=== PATIENT | male | born 1945 | race Caucasian/White ===

== ENCOUNTER 2019-08-21 11:06 | Emergency (ER) | payer OTHER, MEDICARE ==
--- OUTSIDE RECORDS SUMMARY | 2019-08-21 11:09 | XMS REPORT | Clinical Summary ---
:1945 Author Organization [facility] Address [address] [place] [address] Care Team Providers Name Role Phone Jamaal Rose MD Primary Care Provider Allergies Active Allergy Reactions Severity Noted Date Comments No Known Drug Allergies 06/06/2015 Medications No known medications Active Problems Problem Noted Date Chronic dermatitis 06/06/2015 Hearing loss 06/06/2015 HLD (hyperlipidemia) 06/06/2015 Hypertension 06/06/2015 Social History Tobacco Use Types Packs/Day Years Used Date Never Smoker Alcohol Use Drinks/Week oz/Week Comments No Sex Assigned at Date Recorded Not on file Job Start Date Occupation Industry Not on file Not on file Not on file Travel History Travel Start Travel End No recent travel history available. Last Filed Vital Signs Not on file Plan of Treatment Health Maintenance Due Date Last Done Comments SHINGLES VACCINES (#1) 07/11/1993 65+ PNEUMOCOCCAL VACCINE (1 of 2 - PCV13) 07/11/2008 INFLUENZA VACCINE 09/17/2019 COLONOSCOPY SCREENING 02/16/2022 02/17/2012 Results Not on fileafter 08/20/2018 Insurance Payer Benefit Plan / Subscriber ID Effective Dates Phone Addre ss Type Group AARP AARP SUPPLEMENT xxxxxxxxxxx 2014-Present Commercial MEDICARE MEDICARE PART A xxxxxxxxxx 2008-Present [employer] Medicare AND B [phone] [id number] [place] F y 6 (Home) [place] [address] Advance Directives For more information, please contact: [phone] Type Date Recorded 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
--- OUTSIDE RECORDS SUMMARY | 2019-08-21 11:14 | XMS REPORT | Continuity of Care Document ---
:1945 Author Organization [employer] Information [employer] Care Team Providers Name Role Phone [employer] Unavailable Un available Problems Problem Status Onset Classification Date Comments Sourc e Date Reported SPONDYLOSIS WITH Active Condition 06/01/2014 MYELOPATHY, LUMBAR 014 M edical REGION Group URINARY FREQUENCY Active Condition 06/01/2014 [facility] 014 Medical Group DENTAL CARIES Active Condition 06/01/2014 014 Medical Group SPASM OF MUSCLE Active Condition 06/01/2014 014 Medical Group PHYSICAL EXAM Active Condition 06/01/2014 014 Medical Group SCREENING OTHER&UNSPEC Active Condition 06/01/2014 CARDIOVASCULAR 014 Medic al CONDITIONS Group DERMATITIS Active Condition 06/01/2014 014 Medical Group TESTICULAR HYPOFUNCTION Active Condition 06/01/2014 014 Medical Group SCREENING FOR MALIGNANT Inactive Condition 06/01/2014 NEOPLASM, PROSTATE 013 M edical Group LIBIDO, DECREASED Inactive Condition 06/01/2014 H 013 Medical Group ANEMIA, UNSPC Inactive Condition 06/01/2014 013 Medical Group PRURITUS ANI Inactive Condition 06/01/2014 013 Medical Group GASTROENTERITIS Inactive Condition 06/01/2014 012 Medical Group HEADACHE Inactive Condition 06/01/2014 012 Medical Group CARPAL TUNNEL SYNDROME, Inactive Condition 06/01/2014 LEFT 012 Medical Group ABDOMINAL DISTENSION Inactive Condition 06/01/2014 012 Medical Group SPONTANEOUS ECCHYMOSES Inactive Condition 06/01/2014 012 Medical Group ALCOHOL ABUSE Inactive Condition 06/01/2014 012 Medical Group CELLULITIS, LEG, RIGHT Inactive Condition 06/01/2014 012 Medical Group ABDOMINAL PAIN, LEFT Inactive Condition 06/01/2014 LOWER QUADRANT 012 Medic al Group NEPHROLITHIASIS Inactive Condition 06/01/2014 012 Medical Group LOW BACK PAIN, ACUTE Inactive Condition 06/01/2014 012 Medical Group BILIARY COLIC Inactive Condition 06/01/2014 012 Medical Group RUQ PAIN Inactive Condition 06/01/2014 012 Medical Group PERIPHERAL EDEMA Inactive Condition 06/01/2014 012 Medical Group TINEA PEDIS Inactive Condition 06/01/2014 012 Medical Group STREPTOCOCCAL Inactive Condition 06/01/2014 PHARYNGITIS 012 Medical Group ALLERGIC RHINITIS Active Condition 06/01/2014 H 012 Medical Group HYPERKALEMIA Inactive Condition 06/01/2014 012 Medical Group EAR PAIN, LEFT Inactive Condition 06/01/2014 011 Medical Group OTITIS MEDIA Inactive Condition 06/01/2014 011 Medical Group COUGH Inactive Condition 06/01/2014 011 Medical Group DYSLIPIDEMIA Active Condition 06/01/2014 011 Medical Group HYPERTENSION Active Condition 06/01/2014 011 Medical Group IMPAIRED FASTING Active Condition 06/01/2014 GLUCOSE 011 Medical Group PHYSICAL EXAMINATION Inactive Condition 06/01/2014 011 Medical Group 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 & OTH LUTS 011 Medical Group ELEVATED BLOOD PRESSURE Inactive Condition 06/01/2014 011 Medical Group VACCINE AGAINST Inactive Condition 06/01/2014 INFLUENZA 011 Medical Group VACCINE AGAINST Inactive Condition 06/01/2014 STREPTOCOCCUS 011 Medica l PNEUMONIAE Group HYPERCHOLESTEROLEMIA Active Condition 06/01/2014 Medical Group Medications Medication Details Route Status Patient Ordering Order Source Instructions Provider Date ANDROGEL PUMP 20.25 apply two Active 11/30/ MG/ACT (1.62%) GEL pumps to 2013 Medi [facility] skin daily Group AMOXICILLIN-POT 1 tab po No 08/09/ CLAVULANATE 875-125 twice daily Longer 2013 Medical MG TABS x 10 days Active Group for infection CYCLOBENZAPRINE HCL 1/2- 1 tab No 08/09/ M H 10 MG TABS nightly as Longer 2013 Medical needed for Active Group muscle spasms CYCLOBENZAPRINE HCL 1/2- 1 tab Active 08/09/ M H 10 MG TABS nightly as 2013 Medical needed for Group muscle spasms AMOXICILLIN-POT 1 tab po Active CLAVULANATE 875-125 twice daily 2014 Medical MG TABS x 10 days Group for infection HYDROCHLOROTHIAZIDE one daily Active 25 MG TABS 2013 Medical Group ANDROGEL PUMP 20.25 Apply 2 No MG/ACT (1.62%) GEL pumps to Longer 2013 [facility] skin once Active Group daily ZOSTAVAX 31623 administer No UNT/0.65ML SOLR one dose as Longer 2013 [facility] directed Active Group PERMETHRIN 5 % CREA apply from No H head to toes Longer 2013 Medical , leave for Active Group at least 8 hrs , then wash off; repeat in 14 days HYDROXYZINE HCL 50 MG 1/2 - 1 tab No TABS every 6 hr Longer 2013 Medical prn itch Active Group ZOSTAVAX 71357 administer No UNT/0.65ML SOLR one dose as Longer 2013 [facility] directed Active Group HYDROXYZINE HCL 50 MG 1/2 - 1 tab No TABS every 6 hr Longer 2013 Medical prn itch Active Group SINGULAIR 10 MG TABS 1 po once Active H daily when 2012 Medical needed Group SINGULAIR 10 MG TABS 1 po qpm Active 2012 Medical Group ZOCOR 20 MG TABS 1 PO QHS Active (cholesterol 2012 Medical ) Group ZOCOR 20 MG TABS 1 PO QHS Active (cholesterol 2012 Medical ) Group PROCTOFOAM HC 1-1 % apply per No FOAM rectal tid Longer 2012 Medical prn Active Group itch/pain CICLOPIROX OLAMINE apply to No 0.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 Longer 2012 Medical feet bid Active Group until resolves DESOXIMETASONE 0.05 % apply to No M H OINT affected Longer 2012 Medical areas bid Active Group prn rash/ itch PROCTOFOAM HC 1-1 % apply per No FOAM rectal tid Longer 2012 Medical prn Active Group itch/pain CICLOPIROX OLAMINE apply to No 0.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 Longer 2012 Medical feet bid Active Group until resolves CIPRO 500 MG TABS 1 po BID No Longer 2011 Medical Active Group PROMETHAZINE HCL 25 1 po q6h prn No MG TABS nausea Longer 2011 Medical Active Group FIORICET 50-325-40 MG 1 po q6h prn No 12/31 TABS Headache Longer 2011 Medical Active Group CIPRO 500 MG TABS 1 po BID No Longer 2011 Medical Active Group PROMETHAZINE HCL 25 1 po q6h prn No MG TABS nausea Longer 2011 Medical Active Group FOLBIC 2.5-25-2 MG 1 tab po qd No H TABS Longer 2011 Medical Active Group FOLBIC 2.5-25-2 MG 1 tab po qd No H TABS Longer 2011 Medical Active Group KEFLEX 500 MG CAPS 1 tid for 10 No days for Longer 2011 Medical infection Active Group SPIRONOLACTONE 50 MG 1 tab po qd No TABS (swelling Longer 2011 Medical and Active Group hypertension ) SPIRONOLACTONE 50 MG 1 tab po qd No TABS (swelling Longer 2011 Medical and Active Group hypertension ) VICOPROFEN 7.5-200 MG 1 tab po q6h No 07/31 TABS prn prn Longer 2011 Medical pain ( max Active Group : 5 per day) VICOPROFEN 7.5-200 MG 1 tab po q6h No 07/31 TABS prn prn Longer 2011 Medical pain ( max Active Group : 5 per day) NORVASC 5 MG TABS 1 tab po qd No Longer 2011 Medical Active Group NORVASC 5 MG TABS 1 tab po qd No Longer 2011 Medical Active Group FUROSEMIDE 20 MG TABS 1 tab po qd No prn (leg Longer 2011 Medical swelling) Active Group HYZAAR 100-25 MG TABS 1 tab po qd No Longer 2012 Medical Active Group CICLOPIROX OLAMINE apply bid to No 0.77 % CREA feet until Longer 2012 Medical healed Active Group FUROSEMIDE 20 MG TABS 1 tab po qd No prn (leg Longer 2012 Medical swelling) Active Group HYZAAR 100-25 MG TABS 1 tab po qd No Longer 2012 Medical Active Group CICLOPIROX OLAMINE apply bid to No 0.77 % CREA feet until Longer 2012 Medical healed Active Group CEFDINIR 300 MG CAPS 2 caps po qd No for 10 days Longer 2012 Medical Active Group CEFDINIR 300 MG CAPS 2 caps po qd No for 10 days Longer 2012 Medical Active Group AMLODIPINE BESYLATE 1 tab po qd No 10 MG TABS Longer 2012 Medical Active Group SINGULAIR 10 MG TABS 1 daily at No bedtime Longer 2012 Medical Active Group AMLODIPINE BESYLATE 1 tab po qd No 10 MG TABS Longer 2012 Medical Active Group SINGULAIR 10 MG TABS 1 daily at No bedtime Longer 2012 Medical Active Group AVODART 0.5 MG CAPS 1 tab po qd No Longer 2012 Medical Active Group COZAAR 100 MG TABS 1 tab po qd No H Longer 2012 Medical Active Group COZAAR 100 MG TABS 1 tab po qd No H Longer 2012 Medical Active Group ZOCOR 20 MG TABS 1 tab po qd No Longer 2012 Medical Active Group ZOCOR 20 MG TABS 1 tab po qd No Longer 2012 Medical Active Group BACTRIM DS 800-160 MG one tab po No TABS bid Longer 2010 Medical Active Group SINGULAIR 10 MG TABS 1 daily at No bedtime Longer 2010 Medical Active Group PROAIR HFA 108 (90 2 puffs No BASE) MCG/ACT AERS inhaled Longer 2010 Medic al every 4 hrs Active Group as needed for chest tightness/SO B/cough SINGULAIR 10 MG TABS 1 daily at No bedtime Longer 2010 Medical Active Group PROAIR HFA 108 (90 2 puffs No BASE) MCG/ACT AERS inhaled Longer 2010 Medic al every 4 hrs Active Group as needed for chest tightness/SO B/cough LISINOPRIL 20 MG TABS 1 po qd No Longer 2010 Medical Active Group FLOMAX 0.4 MG CAPS 1 cap po qpm No (30 mins Longer 2010 Medical after same Active Group meal) FLOMAX 0.4 MG CAPS 1 cap po qpm No (30 mins Longer 2010 Medical after same Active Group meal) Allergies, Adverse Reactions, Alerts Substance Category Reaction Severity Reaction Status Date Comments S ource type Reported LISINOPRIL Drug LISINOPRIL allergy 1 Medical Group NORVASC Drug NORVASC allergy 2 Medical Group Immunizations Immunization Date Given Site Status Last Updated Comments [facility] pneumococcal 12/02/2010 completed Med ical immunization Group administered influenza 12/02/2010 completed Medica l immunization (Flu Gr oup Vax) has been administered Results Order Name Results Value Reference Date Interpretation Comments [facility] Range Chemistry CHOLESTEROL 201 - 199 06/01 Medical Group Chemistry TRIGLYCERIDE 63 - 149 06/01 Medical Group Chemistry HDL 68 >=61 06/01 Medical Group Chemistry LDL 120 - 99 06/01 Medical Group Chemistry PSA 2.6 0.0 - 4.0 06/01 Medical Group Chemistry SODIUM 137 MEQ/L 135 - 145 06/01 Medical Group Chemistry POTASSIUM 4.2 MEQ/L 3.5 - 5.1 06/01 Medical Group Chemistry CREATININE 1.2 0.5 - 1.4 06/01 Medical Group Chemistry BUN 12 7 - 22 06/01 Medical Group Chemistry BUN/CREAT 10 6 - 25 06/01 Medical Group Chemistry ALBUMIN 4.1 3.5 - 5.0 06/01 Medical Group Chemistry CALCIUM 9.6 8.5 - 10.5 06/01 Medical Group Chemistry SGPT (ALT) 34 0 - 65 06/01 Medical Group Chemistry SGOT (AST) 27 0 - 37 06/01 Medical Group Chemistry ALK PHOS 67 39 - 136 06/01 Medical Group Chemistry TESTO, TOTAL 404 250 - 1100 06/01 Medical Group Chemistry TESTO, FREE 86.2 30.0 - 06/01 MH 135.0 /2014 Medical Group Urinalysis UA COLOR Light 06/01 Yellow /2014 Medical Group Urinalysis UA COLOR Yellow 08/09 Medical Group Urinalysis UA COLOR Yellow 08/09 Medical Group Urinalysis UA COLOR Yellow 08/09 Medical Group Chemistry SODIUM 141 MEQ/L 135 - 145 08/09 Medical Group Chemistry SODIUM 141 MEQ/L 135 - 145 08/09 Medical Group Chemistry POTASSIUM 4.5 MEQ/L 3.5 - 5.1 08/09 Medical Group Chemistry CREATININE 1.0 0.5 - 1.4 08/09 Medical Group Chemistry BUN 10 7 - 22 08/09 Medical Group Chemistry BUN/CREAT 10 - 08/09 Medical Group Chemistry ALBUMIN 4.3 3.5 - 5.0 08/09 Medical Group Chemistry CALCIUM 9.3 8.5 - 10.5 08/09 Medical Group Chemistry SGPT (ALT) 62 0 - 65 08/09 Medical Group Chemistry SGOT (AST) 56 0 - 37 08/09 Medical Group Chemistry SODIUM 141 MEQ/L 135 - 145 08/09 Medical Group Chemistry SODIUM 141 MEQ/L 135 - 145 08/09 Medical Group Chemistry POTASSIUM 4.5 MEQ/L 3.5 - 5.1 08/09 Medical Group Chemistry CREATININE 1.0 0.5 - 1.4 08/09 Medical Group Chemistry BUN 10 7 - 08/09 Medical Group Chemistry BUN/CREAT 10 - 08/09 Medical Group Chemistry ALBUMIN 4.3 3.5 - 5.0 08/09 Medical Group Chemistry CALCIUM 9.3 8.5 - 10.5 08/09 Medical Group Chemistry SGPT (ALT) 62 0 - 65 08/09 Medical Group Chemistry SGOT (AST) 56 0 - 37 08/09 Medical Group Chemistry ALK PHOS 73 39 - 136 08/09 Medical Group Chemistry ALK PHOS 73 39 - 136 08/09 Medical Group Hematology HGB 14.3 14.0 - 08/09 18.0 Medical Group Hematology HCT 43.4 42.0 - 08/09 54.0 Medical Group Hematology PLATELETS 291 K/CMM 133 - 450 08/09 Medical Group Hematology HGB 14.3 14.0 - 08/09 MH 18.0 Medical Group Hematology HCT 43.4 42.0 - 08/09 54.0 Medical Group Hematology PLATELETS 291 K/CMM 133 - 450 08/09 Medical Group Chemistry SODIUM 138 MEQ/L 135 - 145 06/29 Medical Group Chemistry SODIUM 138 MEQ/L 135 - 145 06/29 Medical Group Chemistry POTASSIUM 5.0 MEQ/L 3.5 - 5.1 06/29 Medical Group Chemistry CREATININE 1.1 0.5 - 1.4 06/29 Medical Group Chemistry BUN 13 7 - 22 06/29 Medical Group Chemistry BUN/CREAT 12 6 - 25 06/29 Medical Group Chemistry ALBUMIN 4.4 3.5 - 5.0 06/29 Medical Group Chemistry CALCIUM 9.8 8.5 - 10.5 06/29 Medical Group Chemistry SGPT (ALT) 41 0 - 65 06/29 Medical Group Chemistry SGOT (AST) 30 0 - 37 06/29 Medical Group Chemistry ALK PHOS 74 39 - 136 06/29 Medical Group Chemistry TESTO, TOTAL 230 241 - 827 06/29 Medical Group Chemistry TESTO, TOTAL 199 241 - 827 03/17 Medical Group Chemistry TESTO, TOTAL 199 241 - 827 03/17 Medical Group Chemistry HGBA1C 5.7 - 5.6 03/17 Medical Group Chemistry HGBA1C 5.7 - 5.6 03/17 Medical Group Chemistry CHOLESTEROL 206 - 199 03/17 Medical Group Chemistry TRIGLYCERIDE 88 - 149 03/17 Medical Group Chemistry HDL 66 >=61 03/17 Medical Group Chemistry LDL 122 - 99 03/17 Medical Group Chemistry SODIUM 139 MEQ/L 135 - 145 03/17 Medical Group Chemistry POTASSIUM 5.5 MEQ/L 3.5 - 5.1 03/17 Medical Group Chemistry CREATININE 1.1 0.5 - 1.4 03/17 Medical Group Chemistry BUN 13 7 - 22 03/17 Medical Group Chemistry BUN/CREAT 12 6 - 25 03/17 Medical Group Chemistry ALBUMIN 4.2 3.5 - 5.0 03/17 Medical Group Chemistry CALCIUM 9.3 8.5 - 10.5 03/17 Medical Group Chemistry SGPT (ALT) 51 0 - 65 03/17 Medical Group Chemistry SGOT (AST) 35 0 - 37 03/17 Medical Group Chemistry ALK PHOS 71 39 - 136 03/17 Medical Group Chemistry TSH 1.260 0.360 - 03/17 Medical Group Chemistry HGBA1C 5.7 - 5.6 03/17 Medical Group Chemistry HGBA1C 5.7 - 5.6 03/17 Medical Group Chemistry CHOLESTEROL 206 - 199 03/17 Medical Group Chemistry TRIGLYCERIDE 88 - 149 03/17 Medical Group Chemistry HDL 66 >=61 03/17 Medical Group Chemistry LDL 122 - 99 03/17 Medical Group Chemistry SODIUM 139 MEQ/L 135 - 145 03/17 Medical Group Chemistry POTASSIUM 5.5 MEQ/L 3.5 - 5.1 03/17 Medical Group Chemistry CREATININE 1.1 0.5 - 1.4 03/17 Medical Group Chemistry BUN 13 7 - 22 03/17 Medical Group Chemistry BUN/CREAT 12 6 - 25 03/17 Medical Group Chemistry ALBUMIN 4.2 3.5 - 5.0 03/17 Medical Group Chemistry CALCIUM 9.3 8.5 - 10.5 03/17 Medical Group Chemistry SGPT (ALT) 51 0 - 65 03/17 Medical Group Chemistry SGOT (AST) 35 0 - 37 03/17 Medical Group Chemistry ALK PHOS 71 39 - 136 03/17 Medical Group Chemistry TSH 1.260 0.360 - 03/17 Medical Group Chemistry PSA 1.89 0.00 - 03/17 4. Medical Group Chemistry PSA 1.89 0.00 - 03/17 4. Medical Group Hematology HGB 14.3 14.0 - 03/17 18. Medical Group Hematology HCT 43.6 42.0 - 03/17 MH 54.0 /2013 Medical Group Hematology PLATELETS 259 K/CMM 133 - 450 03/17 Medical Group Hematology HGB 14.3 14.0 - 03/17 MH 18.0 /2013 Medical Group Hematology HCT 43.6 42.0 - 03/17 MH 54.0 /2013 Medical Group Hematology PLATELETS 259 K/CMM 133 - 450 03/17 Medical Group Urinalysis UA COLOR Yellow 03/17 Medical Group Urinalysis UA COLOR Yellow 03/17 Medical Group Urinalysis BACTERIA URN Occasional 03/17 Medical Group Chemistry CHOLESTEROL 174 - 199 07/19 Medical Group Chemistry CHOLESTEROL 174 - 199 07/19 Medical Group Chemistry TRIGLYCERIDE 95 - 149 07/19 Medical Group Chemistry HDL 58 >=61 07/19 Medical Group Chemistry SODIUM 140 MEQ/L 135 - 145 07/19 Medical Group Chemistry POTASSIUM 4.4 MEQ/L 3.5 - 5.1 07/19 Medical Group Chemistry CREATININE 1.1 0.5 - 1.4 07/19 Medical Group Chemistry BUN 11 7 - 22 07/19 Medical Group Chemistry BUN/CREAT 10 6 - 25 07/19 Medical Group Chemistry ALBUMIN 4.4 3.5 - 5.0 07/19 Medical Group Chemistry CALCIUM 9.3 8.5 - 10.5 07/19 Medical Group Chemistry SGPT (ALT) 53 0 - 65 07/19 Medical Group Chemistry SGOT (AST) 37 0 - 37 07/19 Medical Group Chemistry CHOLESTEROL 174 - 199 07/19 Medical Group Chemistry CHOLESTEROL 174 - 199 07/19 Medical Group Chemistry TRIGLYCERIDE 95 - 149 07/19 Medical Group Chemistry HDL 58 >=61 07/19 Medical Group Chemistry LDL 97 - 99 07/19 Medical Group Chemistry SODIUM 140 MEQ/L 135 - 145 07/19 Medical Group Chemistry POTASSIUM 4.4 MEQ/L 3.5 - 5.1 07/19 Medical Group Chemistry CREATININE 1.1 0.5 - 1.4 07/19 Medical Group Chemistry BUN 11 7 - 22 07/19 Medical Group Chemistry BUN/CREAT 10 6 - 25 07/19 Medical Group Chemistry ALBUMIN 4.4 3.5 - 5.0 07/19 Medical Group Chemistry CALCIUM 9.3 8.5 - 10.5 07/19 Medical Group Chemistry SGPT (ALT) 53 0 - 65 07/19 Medical Group Chemistry SGOT (AST) 37 0 - 37 07/19 Medical Group Chemistry ALK PHOS 72 39 - 136 07/19 Medical Group Chemistry ALK PHOS 72 39 - 136 07/19 Medical Group Chemistry PSA 1.52 0.00 - 03/16 4. Medical Group Chemistry PSA 1.52 0.00 - 03/16 4. Medical Group Chemistry HGBA1C 5.9 03/16 Medical Group Chemistry HGBA1C 5.9 03/16 Medical Group Chemistry CHOLESTEROL 271 120 - 200 03/16 Medical Group Chemistry TRIGLYCERIDE 83 0 - 200 03/16 Medical Group Chemistry HDL 58 >=35 03/16 Medical Group Chemistry LDL 196 0 - 129 03/16 Medical Group Chemistry SODIUM 139 MEQ/L 135 - 145 03/16 Medical Group Chemistry POTASSIUM 4.6 MEQ/L 3.5 - 5.1 03/16 Medical Group Chemistry CREATININE 1.0 0.5 - 1.4 03/16 Medical Group Chemistry BUN 11 7 - 22 03/16 Medical Group Chemistry BUN/CREAT 11 6 - 25 03/16 Medical Group Chemistry ALBUMIN 4.3 3.5 - 5.0 03/16 Medical Group Chemistry CALCIUM 9.4 8.5 - 10.5 03/16 Medical Group Chemistry SGPT (ALT) 51 0 - 65 03/16 Medical Group Chemistry SGOT (AST) 33 0 - 37 03/16 Medical Group Chemistry ALK PHOS 64 39 - 136 03/16 Medical Group Chemistry FERRITIN 462 22 - 275 03/16 Medical Group Chemistry IRON 115 45 - 160 03/16 Medical Group Chemistry TIBC 250 228 - 428 03/16 Medical Group Chemistry FOLATE 25.1 >=3.0 03/16 Medical Group Hematology HGB 14.6 14.0 - 03/16 18.0 Medical Group Hematology HCT 43.8 42.0 - 03/16 54.0 /2012 Medical Group Hematology PLATELETS 254 K/CMM 133 - 450 03/16 Medical Group Chemistry LDL 158 0 - 129 10/28 Medical Group Chemistry LDL 158 0 - 129 10/28 Medical Group Chemistry SODIUM 138 MEQ/L 135 - 145 10/28 Medical Group Chemistry POTASSIUM 5.1 MEQ/L 3.5 - 5.1 10/28 Medical Group Chemistry CREATININE 1.5 0.5 - 1.4 10/28 Medical Group Chemistry BUN 26 7 - 22 10/28 Medical Group Chemistry BUN/CREAT 17 6 - 25 10/28 Medical Group Chemistry ALBUMIN 4.7 3.5 - 5.0 10/28 Medical Group Chemistry CALCIUM 10.1 8.5 - 10.5 10/28 Medical Group Chemistry SGPT (ALT) 45 0 - 65 10/28 Medical Group Chemistry SGOT (AST) 17 0 - 37 10/28 Medical Group Chemistry ALK PHOS 55 39 - 136 10/28 Medical Group Chemistry FERRITIN 516 22 - 275 10/28 Medical Group Chemistry IRON 156 45 - 160 10/28 Medical Group Chemistry TIBC 283 228 - 428 10/28 Medical Group Chemistry CHOLESTEROL 227 120 - 200 10/28 Medical Group Chemistry CHOLESTEROL 227 120 - 200 10/28 Medical Group Chemistry TRIGLYCERIDE 97 0 - 200 10/28 Medical Group Chemistry HDL 50 >=35 10/28 Medical Group Chemistry LDL 158 0 - 129 10/28 Medical Group Chemistry SODIUM 138 MEQ/L 135 - 145 10/28 Medical Group Chemistry POTASSIUM 5.1 MEQ/L 3.5 - 5.1 10/28 Medical Group Chemistry CREATININE 1.5 0.5 - 1.4 10/28 Medical Group Chemistry BUN 26 7 - 22 10/28 Medical Group Chemistry BUN/CREAT 17 6 - 25 10/28 Medical Group Chemistry ALBUMIN 4.7 3.5 - 5.0 10/28 Medical Group Chemistry CALCIUM 10.1 8.5 - 10.5 10/28 Medical Group Chemistry SGPT (ALT) 45 0 - 65 10/28 Medical Group Chemistry SGOT (AST) 17 0 - 37 10/28 Medical Group Chemistry ALK PHOS 55 39 - 136 10/28 Medical Group Chemistry FERRITIN 516 22 - 275 10/28 Medical Group Chemistry IRON 156 45 - 160 10/28 Medical Group Chemistry TIBC 283 228 - 428 10/28 Medical Group Chemistry FOLATE 6.9 >=3.0 10/28 Medical Group Chemistry FOLATE 6.9 >=3.0 10/28 Medical Group Hematology HGB 12.3 14.0 - 10/28 MH 18.0 Medical Group Hematology HCT 36.9 42.0 - 10/28 MH 54.0 Medical Group Hematology PLATELETS 339 K/CMM 133 - 450 10/28 Medical Group Hematology HGB 12.3 14.0 - 10/28 MH 18.0 Medical Group Hematology HCT 36.9 42.0 - 10/28 MH 54.0 Medical Group Hematology PLATELETS 339 K/CMM 133 - 450 10/28 Medical Group Chemistry GGT 80 5 - 85 09/17 Medical Group Chemistry GGT 80 5 - 85 09/17 Medical Group Chemistry IRON 108 45 - 160 09/17 Medical Group Chemistry TIBC 295 228 - 428 09/17 Medical Group Chemistry FOLATE 13.3 >=3.0 09/17 Medical Group Chemistry SODIUM 143 MEQ/L 135 - 145 09/17 Medical Group Chemistry POTASSIUM 3.9 MEQ/L 3.5 - 5.1 09/17 Medical Group Chemistry BUN 23 7 - 22 09/17 Medical Group Chemistry CREATININE 1.5 0.5 - 1.4 09/17 Medical Group Chemistry BUN/CREAT 15 6 - 25 09/17 Medical Group Chemistry ALBUMIN 4.5 3.5 - 5.0 09/17 Medical Group Chemistry CALCIUM 9.8 8.5 - 10.5 09/17 Medical Group Chemistry SGOT (AST) 25 0 - 37 09/17 Medical Group Chemistry SGPT (ALT) 37 0 - 65 09/17 Medical Group Chemistry ALK PHOS 54 39 - 136 08 /2011 Medical Group Coagulation PT PATIENT 12.9 12.0 - 09/17 MH 14.7 /2011 Medical Group Coagulation INR 0.95 0.85 - 09/17 1.17 /2011 Medical Group Coagulation PTT PATIENT 32.2 22.9 - / MH 35.8 /2011 Medical Group Coagulation PT PATIENT 12.9 12.0 - 09/17 MH 14.7 /2011 Medical Group Coagulation INR 0.95 0.85 - 09/17 1.17 /2011 Medical Group Coagulation PTT PATIENT 32.2 22.9 - 09/17 MH 35.8 /2011 Medical Group Hematology HGB 13.2 14.0 - 09/17 MH 18.0 /2011 Medical Group Hematology HCT 38.7 42.0 - 09/17 54.0 /2011 Medical Group Hematology PLATELETS 310 K/CMM 133 - 450 08 Medical Group Chemistry URIC ACID 6.4 3.8 - 8.0 08/03 Medical Group Chemistry URIC ACID 6.4 3.8 - 8.0 08/03 Medical Group Chemistry AMYLASE 34 25 - 115 07/24 Medical Group Chemistry AMYLASE 34 25 - 115 07/24 Medical Group Chemistry AMYLASE 34 25 - 115 07/24 Medical Group Chemistry SODIUM 137 MEQ/L 135 - 145 07/24 Medical Group Chemistry POTASSIUM 4.0 MEQ/L 3.5 - 5.1 07/24 Medical Group Chemistry BUN 14 7 - 22 07/24 Medical Group Chemistry CREATININE 1.2 0.5 - 1.4 07/24 Medical Group Chemistry BUN/CREAT 12 6 - 25 07/24 Medical Group Chemistry ALBUMIN 4.7 3.5 - 5.0 07/24 Medical Group Chemistry CALCIUM 9.5 8.5 - 10.5 07/24 Medical Group Chemistry SGOT (AST) 37 0 - 37 07/24 Medical Group Chemistry SGPT (ALT) 49 0 - 65 07/24 Medical Group Chemistry AMYLASE 34 25 - 115 07/24 Medical Group Chemistry ALK PHOS 66 39 - 136 07/24 Medical Group Chemistry PO4 3.4 2.5 - 4.5 02/26 Medical Group Chemistry PO4 3.4 2.5 - 4.5 02/26 Medical Group Chemistry PO4 3.4 2.5 - 4.5 02/26 Medical Group Chemistry PO4 3.4 2.5 - 4.5 02/26 Medical Group Chemistry MAGNESIUM 1.9 1.8 - 2.4 02/26 Medical Group Chemistry BUN 12 7 - 22 02/26 Medical Group Chemistry CREATININE 1.1 0.5 - 1.4 02/26 Medical Group Chemistry SODIUM 141 MEQ/L 135 - 145 02/26 Medical Group Chemistry POTASSIUM 4.6 MEQ/L 3.5 - 5.1 02/26 Medical Group Chemistry MAGNESIUM 1.9 1.8 - 2.4 02/26 Medical Group Chemistry CALCIUM 9.0 8.5 - 10.5 02/26 Medical Group Chemistry HGBA1C 6.5 02/14 Medical Group Chemistry HGBA1C 6.5 02/14 Medical Group Chemistry CHOLESTEROL 214 120 - 200 02/14 Medical Group Chemistry TRIGLYCERIDE 90 0 - 200 02/14 Medical Group Chemistry HDL 88 >=35 02/14 Medical Group Chemistry LDL 108 0 - 129 02/14 Medical Group Chemistry SODIUM 140 MEQ/L 135 - 145 02/14 Medical Group Chemistry POTASSIUM 5.5 MEQ/L 3.5 - 5.1 02/14 Medical Group Chemistry CREATININE 1.2 0.5 - 1.4 02/14 Medical Group Chemistry BUN 14 7 - 22 02/14 Medical Group Chemistry BUN/CREAT 12 6 - 25 02/14 Medical Group Chemistry ALBUMIN 4.5 3.5 - 5.0 02/14 Medical Group Chemistry CALCIUM 9.9 8.5 - 10.5 02/14 Medical Group Chemistry SGPT (ALT) 37 0 - 65 02/14 Medical Group Chemistry SGOT (AST) 18 0 - 37 02/14 Medical Group Chemistry ALK PHOS 61 39 - 136 02/14 Medical Group Chemistry CHOLESTEROL 228 120 - 200 12/03 Medical Group Chemistry CHOLESTEROL 228 120 - 200 12/03 Medical Group Chemistry TRIGLYCERIDE 115 0 - 200 12/03 Medical Group Chemistry HDL 50 >=35 12/03 Medical Group Chemistry LDL 155 0 - 129 12/03 Medical Group Chemistry TSH 1.360 0.360 - 12/03 3. Medical Group Chemistry SODIUM 138 MEQ/L 135 - 145 12/03 Medical Group Chemistry POTASSIUM 4.6 MEQ/L 3.5 - 5.1 12/03 Medical Group Chemistry BUN 13 7 - 22 12/03 Medical Group Chemistry CREATININE 1.2 0.5 - 1.4 12/03 Medical Group Chemistry BUN/CREAT 11 6 - 25 12/03 Medical Group Chemistry ALBUMIN 4.1 3.5 - 5.0 12/03 Medical Group Chemistry CALCIUM 9.0 8.5 - 10.5 12/03 [facility] SGOT (AST) 25 0 - 37 12/03 [facility] SGPT (ALT) 51 0 - 65 12/03 [facility] ALK PHOS 59 39 - 136 12/03 [facility] CHOLESTEROL 228 120 - 200 12/03 [facility] CHOLESTEROL 228 120 - 200 12/03 [facility] TRIGLYCERIDE 115 0 - 200 12/03 [facility] HDL 50 >=35 12/03 [facility] LDL 155 0 - 129 12/03 [facility] TSH 1.360 0.360 - 12/03 3. [facility] SODIUM 138 MEQ/L 135 - 145 12/03 [facility] POTASSIUM 4.6 MEQ/L 3.5 - 5.1 12/03 [facility] BUN 13 7 - 22 12/03 [facility] CREATININE 1.2 0.5 - 1.4 12/03 [facility] BUN/CREAT 11 6 - 25 12/03 [facility] ALBUMIN 4.1 3.5 - 5.0 12/03 [facility] CALCIUM 9.0 8.5 - 10.5 12/03 [facility] SGOT (AST) 25 0 - 37 12/03 [facility] SGPT (ALT) 51 0 - 65 12/03 [facility] ALK PHOS 59 39 - 136 12/03 [facility] PSA 1.44 0.00 - 12/03 . [facility] PSA 1.44 0.00 - 12/03 4. [facility] Hematology HGB 14.7 14.0 - 12/03 [facility] 18.0 [facility] Hematology HCT 42.9 42.0 - 12/03 54.0 [facility] Hematology PLATELETS 296 K/CMM 133 - 450 12/03 [facility] Hematology HGB 14.7 14.0 - 12/03 18.0 [facility] Hematology HCT 42.9 42.0 - 12/03 MH 54.0 [facility] Hematology PLATELETS 296 K/CMM 133 - 450 12/03 [facility] Urinalysis UA COLOR Yellow Yellow 12/03 [facility] Urinalysis BACTERIA URN Occasional None Seen 12/03 [facility] Urinalysis UA COLOR Yellow Yellow 12/03 Medical [facility] Urinalysis BACTERIA URN Occasional None Seen 12/03 [facility] Pathology Reports No Data Provided for This Section Diagnostic Reports No Data Provided for This Section Consultation Notes No Data Provided for This Section Discharge Summaries No Data Provided for This Section History and Physicals No Data Provided for This Section Vital Signs Vital Sign Value Date Comments Source Height 70.5 05/30/2014 [facility] Weight 213 05/30/2014 [facility] Temperature Oral (F) 96.4 F 05/30/2014 [facility] Systolic (mm Hg) 211 05/30/2014 [facility] Diastolic (mm Hg) 88 05/30/2014 [facility] Heart Rate 64 05/30/2014 [facility] Weight 213 08/09/2013 [facility] Temperature Oral (F) 96.7 F 08/09/2013 [facility] Systolic (mm Hg) 175 08/09/2013 [facility] Diastolic (mm Hg) 79 08/09/2013 [facility] Heart Rate 59 08/09/2013 [facility] Weight 213 06/29/2013 [facility] Temperature Oral (F) 96.8 F 06/29/2013 [facility] Systolic (mm Hg) 166 06/29/2013 [facility] Diastolic (mm Hg) 82 06/29/2013 [facility] Heart Rate 67 06/29/2013 [facility] Weight 213 05/19/2013 [facility] Temperature Oral (F) 96.8 F 05/19/2013 [facility] Respitory Rate 19 05/19/2013 [facility] Heart Rate 68 05/19/2013 [facility] Systolic (mm Hg) 213 05/19/2013 [facility] Diastolic (mm Hg) 109 05/19/2013 [facility] Weight 206 03/14/2013 [facility] Respitory Rate 18 03/14/2013 [facility] Temperature Oral (F) 98.3 F 03/14/2013 [facility] Heart Rate 84 03/14/2013 [facility] Systolic (mm Hg) 197 03/14/2013 [facility] Diastolic (mm Hg) 96 03/14/2013 [facility] Weight 214 03/12/2012 [facility] Temperature Oral (F) 98.5 F 03/12/2012 [facility] Respitory Rate 18 03/12/2012 [facility] Heart Rate 74 03/12/2012 [facility] Systolic (mm Hg) 200 03/12/2012 [facility] Diastolic (mm Hg) 84 03/12/2012 [facility] Weight 213 01/01/2012 [facility] Temperature Oral (F) 98.1 F 01/01/2012 [facility] Systolic (mm Hg) 165 01/01/2012 [facility] Diastolic (mm Hg) 82 01/01/2012 [facility] Heart Rate 91 01/01/2012 [facility] Weight 215 10/29/2011 [facility] Respitory Rate 19 10/29/2011 [facility] Heart Rate 76 10/29/2011 [facility] Systolic (mm Hg) 163 10/29/2011 [facility] Diastolic (mm Hg) 82 10/29/2011 [facility] Temperature Oral (F) 98.1 F 10/29/2011 [facility] Weight 223 09/17/2011 [facility] Temperature Oral (F) 97.1 F 09/17/2011 [facility] Respitory Rate 20 09/17/2011 [facility] Heart Rate 71 09/17/2011 [facility] Systolic (mm Hg) 140 09/17/2011 [facility] Diastolic (mm Hg) 77 09/17/2011 [facility] Weight 222 08/04/2011 [facility] Temperature Oral (F) 97.5 F 08/04/2011 [facility] Respitory Rate 18 08/04/2011 [facility] Systolic (mm Hg) 197 08/04/2011 [facility] Diastolic (mm Hg) 93 08/04/2011 [facility] Heart Rate 61 08/04/2011 [facility] Weight 215 07/25/2011 [facility] Temperature Oral (F) 96.1 F 07/25/2011 [facility] Respitory Rate 18 07/25/2011 [facility] Heart Rate 75 07/25/2011 [facility] Systolic (mm Hg) 164 07/25/2011 [facility] Diastolic (mm Hg) 83 07/25/2011 [facility] Weight 217 07/16/2011 [facility] Temperature Oral (F) 96.6 F 07/16/2011 [facility] Heart Rate 67 07/16/2011 [facility] Systolic (mm Hg) 167 07/16/2011 [facility] Diastolic (mm Hg) 85 07/16/2011 [facility] Weight 216 06/25/2011 [facility] Temperature Oral (F) 96.6 F 06/25/2011 [facility] Systolic (mm Hg) 157 06/25/2011 [facility] Diastolic (mm Hg) 85 06/25/2011 [facility] Heart Rate 72 06/25/2011 [facility] Respitory Rate 18 06/25/2011 [facility] Weight 213 05/28/2011 [facility] Temperature Oral (F) 96.7 F 05/28/2011 [facility] Systolic (mm Hg) 169 05/28/2011 [facility] Diastolic (mm Hg) 76 05/28/2011 [facility] Heart Rate 61 05/28/2011 [facility] Systolic (mm Hg) 180 02/26/2011 [facility] Diastolic (mm Hg) 76 02/26/2011 [facility] Weight 215 02/26/2011 [facility] Temperature Oral (F) 96.6 F 02/26/2011 [facility] Respitory Rate 18 02/26/2011 [facility] Heart Rate 76 02/26/2011 [facility] Weight 213 01/31/2011 [facility] Respitory Rate 18 01/31/2011 [facility] Heart Rate 74 01/31/2011 [facility] Systolic (mm Hg) 197 01/31/2011 [facility] Diastolic (mm Hg) 88 01/31/2011 [facility] Temperature Oral (F) 96.8 F 01/31/2011 [facility] Weight 215 01/07/2011 [facility] Respitory Rate 18 01/07/2011 [facility] Temperature Oral (F) 97.5 F 01/07/2011 [facility] Heart Rate 65 01/07/2011 [facility] Systolic (mm Hg) 144 01/07/2011 [facility] Diastolic (mm Hg) 76 01/07/2011 [facility] Height 70.5 12/02/2010 [facility] Weight 213 12/02/2010 [facility] Respitory Rate 18 12/02/2010 [facility] Heart Rate 67 12/02/2010 [facility] Systolic (mm Hg) 202 12/02/2010 [facility] Diastolic (mm Hg) 90 12/02/2010 [facility] Temperature Oral (F) 97.9 F 12/02/2010 [facility] Encounters Location Location Encounter Encounter Reason Attending ADM DC Stat us Source Details Type Number For Provider Date Date Visit [facility] Lab Report [id number] Alfredo Coffman, 08/15 08/15 Josue 340 MD /2013 [facility] [id number] Alfredo Coffman, 05/30 05/30 Josue Visit 110 MD /2014 [facility] Lab Report [id number] Alfredo Coffman, 06/01 06/01 CHERYL Salas 660 MD /2014 [facility] [place] [facility] Procedures Procedure Code Date Perfomer Comments Source colonoscopy 66831 02/16/2009 polyps - due in [facility] 2013 Group Assessment and Plan No Data Provided for This Section Plan of Care No Data Provided for This Section Social History No Data Provided for This Section Family History No Data Provided for This Section Advance Directives No Data Provided for This Section Functional Status No Data Provided for This Section
--- OUTSIDE RECORDS SUMMARY | 2019-08-21 11:20 | XMS REPORT | Continuity of Care Document ---
:1945 Author Organization [facility] t Address [address] [place] [address] Care Team Providers Name Role Phone Milton WYMAN, F. Primary Care Physician Problems Condition Condition Condition Status Onset Resolution Last Treating Co mments Source Name Details Category Date Date Treatment Clinician Date Chronic Chronic Disease Active [place] dermatitis dermatitis 4-20 Me thodi 00:00: st 00 Hearing Hearing Disease Active [place] loss loss 4-20 Methodi 00:00: st 00 HLD HLD Disease Active [place] (hyperlipi (hyperlipi 4-20 Me thodi demia) demia) 00:00: st 00 Hypertensi Hypertensi Disease Active [place] on on 4-20 Methodi 00:00: st 00 SPONDYLOSI Condition Active 2014-06-01 Memoria S WITH 6-24 10:25:00 l MYELOPATHY 00:00: Chip n , LUMBAR SPONDYLOSI 00 REGION S WITH MYELOPATHY , LUMBAR REGION Active 08/09/2013 [facility] URINARY Condition Active 2014-06-01 Me moria FREQUENCY 6-24 10:25:00 l URINARY 00:00: [place] FREQUENCY 00 Active 08/09/2013 [facility] DENTAL Condition Active 2014-06-01 Mem oria CARIES 6-24 10:25:00 l DENTAL 00:00: [place] CARIES 00 Active 08/09/2013 [facility] SPASM OF Condition Active 2014-06-01 M emoria MUSCLE 6-24 10:25:00 l SPASM OF 00:00: Chip n MUSCLE 00 Active 08/09/2013 [facility] PHYSICAL Condition Active 2014-06-01 M emoria EXAM 03-14 10:25:00 l PHYSICAL 00:00: Chip n EXAM 00 Active 03/14/2013 [facility] SCREENING Condition Active 2014-06-01 Memoria OTHER&UNSP 03-14 10:25:00 l EC 00:00: Jos[place] CARDIOVASC SCREENING 00 ULAR OTHER&UNSP CONDITIONS EC CARDIOVASC ULAR CONDITIONS Active 03/14/2013 [facility] DERMATITIS Condition Active 2014-06-01 Memoria 03-14 10:25:00 l 00:00: [place] DERMATITIS 00 Active 03/14/2013 [facility] TESTICULAR Condition Active 2014-06-01 Mem[facility] HYPOFUNCTI 03-14 10:25:00 l ON 00:00: [place] TESTICULAR 00 HYPOFUNCTI ON Active 4 Condition 06/01/2014 [facility] ALLERGIC Condition Active 2014-06-01 M emoria RHINITIS 4- 10:25:00 l ALLERGIC 00:00: Chip n RHINITIS 00 Active 05/28/2011 [facility] DYSLIPIDEM Condition Active 2010-022014-06-01 Memoria IA 03-09 10:25:00 l 00:00: [place] DYSLIPIDEM 00 IA Active 1 Condition 06/01/2014 [facility] HYPERTENSI Condition Active 2010-022014-06-01 Memoria ON 03-09 10:25:00 l 00:00: [place] HYPERTENSI 00 ON Active 1 Condition 06/01/2014 [facility] IMPAIRED Condition Active 2010-022014-06-01 M emoria FASTING 03-09 10:25:00 l GLUCOSE IMPAIRED 00:00: Miriam nn FASTING 00 GLUCOSE Active 01/07/2011 [facility] HYPERTROPH Condition Active 2010-022014-06-01 Memoria Y PROSTATE 0-17 10:25:00 l W/UR OBST 00:00: Josue & OTH LUTS HYPERTROPH 00 Y PROSTATE W/UR OBST & OTH LUTS Active 12/02/2010 [facility] HYPERCHOLE Condition Active 2014-06-01 Memoria STEROLEMIA 10:25:00 l [place] HYPERCHOLE STEROLEMIA Active Condition 06/01/2014 [facility] History of Past Illness Condition Condition Condition Status Onset Resolution Last Treating Co mments Source Name Details Category Date Date Treatment Clinician Date SCREENING Condition Inactiv 2014-06-01 2014-06-01 Memoria FOR e 03-16 10:25:00 10:25:00 l MALIGNANT 00:00: [place] NEOPLASM, SCREENING 00 PROSTATE FOR MALIGNANT NEOPLASM, PROSTATE Inactive 03/16/2012 [facility] LIBIDO, Condition Inactiv 2014-06-01 2014-06-01 Memoria DECREASED e 03-16 10:25:00 10:25:00 l LIBIDO, 00:00: [place] DECREASED 00 Inactive 03/16/2012 [facility] ANEMIA, Condition Inactiv 2014-06-01 2014-06-01 Memoria UNSPC e 03-12 10:25:00 10:25:00 l ANEMIA, 00:00: Jos[place] UNSPC 00 Inactive 03/12/2012 [facility] PRURITUS Condition Inactiv 2014-06-01 2014-06-01 Memoria ANI e 03-12 10:25:00 10:25:00 l PRURITUS 00:00: Chip n ANI 00 Inactive 03/12/2012 [facility] GASTROENTE Condition Inactiv 2011-022014-06-01 2014-06-01 Memoria RITIS e -15 10:25:00 10:25:00 l 00:00: [place] GASTROENTE 00 RITIS Inactive 01/01/2012 [facility] HEADACHE Condition Inactiv 2011-022014-06-01 2014-06-01 Memoria e -15 10:25:00 10:25:00 l HEADACHE 00:00: Chip n 00 Inactive 01/01/2012 [facility] CARPAL Condition Inactiv 2014-06-01 2014-06-01 Memoria TUNNEL e 9-11 10:25:00 10:25:00 l SYNDROME, CARPAL 00:00: Miriam nn LEFT TUNNEL 00 SYNDROME, LEFT Inactive 10/28/2011 [facility] ABDOMINAL Condition Inactiv 2014-06-01 2014-06-01 Memoria DISTENSION e 8-01 10:25:00 10:25:00 l 00:00: [place] ABDOMINAL 00 DISTENSION Inactive 09/17/2011 [facility] SPONTANEOU Condition Inactiv 2014-06-01 2014-06-01 Memoria S e 8- 10:25:00 10:25:00 l ECCHYMOSES 00:00: Chip n SPONTANEOU 00 S ECCHYMOSES Inactive 09/17/2011 [facility] ALCOHOL Condition Inactiv 2014-06-01 2014-06-01 Memoria ABUSE e 8- 10:25:00 10:25:00 l ALCOHOL 00:00: [place] ABUSE 00 Inactive 09/17/2011 [facility] CELLULITIS Condition Inactiv 2014-06-01 2014-06-01 Memoria , LEG, e 8- 10:25:00 10:25:00 l RIGHT 00:00: [place] CELLULITIS 00 , LEG, RIGHT Inactive 09/17/2011 [facility] ABDOMINAL Condition Inactiv 2014-06-01 2014-06-01 Memoria PAIN, LEFT e 6-18 10:25:00 10:25:00 l LOWER 00:00: [place] QUADRANT ABDOMINAL 00 PAIN, LEFT LOWER QUADRANT Inactive 08/04/2011 [facility] NEPHROLITH Condition Inactiv 2014-06-01 2014-06-01 Memoria IASIS e 6-18 10:25:00 10:25:00 l 00:00: [place] NEPHROLITH 00 IASIS Inactive 08/04/2011 [facility] LOW BACK Condition Inactiv 2014-06-01 2014-06-01 Memoria PAIN, e 6-18 10:25:00 10:25:00 l ACUTE LOW BACK 00:00: Chip n PAIN, 00 ACUTE Inactive 08/04/2011 [facility] BILIARY Condition Inactiv 2014-06-01 2014-06-01 Memoria COLIC e 6-15 10:25:00 10:25:00 l BILIARY 00:00: [place] COLIC 00 Inactive 08/01/2011 [facility] RUQ PAIN Condition Inactiv 2014-06-01 2014-06-01 Memoria e 6-08 10:25:00 10:25:00 l RUQ PAIN 00:00: Chip n 00 Inactive 07/25/2011 [facility] PERIPHERAL Condition Inactiv 2014-06-01 2014-06-01 Memoria EDEMA e 07-15 10:25:00 10:25:00 l 00:00: [place] PERIPHERAL 00 EDEMA Inactive 07/16/2011 [facility] TINEA Condition Inactiv 2014-06-01 2014-06-01 Memoria PEDIS e 07-15 10:25:00 10:25:00 l TINEA 00:00: [place] PEDIS 00 Inactive 07/16/2011 [facility] STREPTOCOC Condition Inactiv 2014-06-01 2014-06-01 Memoria BEBA e 06-24 10:25:00 10:25:00 l PHARYNGITI 00:00: Chip n S STREPTOCOC 00 BEBA PHARYNGITI S Inactive 06/25/2011 [facility] HYPERKALEM Condition Inactiv 2014-06-01 2014-06-01 Memoria IA e 1-11 10:25:00 10:25:00 l 00:00: [place] HYPERKALEM 00 IA Inactive 02/26/2011 [facility] EAR PAIN, Condition Inactiv 2010-022014-06-01 2014-06-01 Memoria LEFT e -16 10:25:00 10:25:00 l EAR 00:00: [place] PAIN, LEFT 00 Inactive 01/31/2011 [facility] OTITIS Condition Inactiv 2010-022014-06-01 2014-06-01 Memoria MEDIA e -16 10:25:00 10:25:00 l OTITIS 00:00: [place] MEDIA 00 Inactive 01/31/2011 [facility] COUGH Condition Inactiv 2010-022014-06-01 2014-06-01 Memoria e 1-22 10:25:00 10:25:00 l COUGH 00:00: [place] 00 Inactive 01/07/2011 [facility] PHYSICAL Condition Inactiv 2010-022014-06-01 2014-06-01 Memoria EXAMINATIO e 0-17 10:25:00 10:25:00 l N PHYSICAL 00:00: Chip n EXAMINATIO 00 N Inactive 12/02/2010 [facility] ELEVATED Condition Inactiv 2010-022014-06-01 2014-06-01 Memoria BLOOD e 0-17 10:25:00 10:25:00 l PRESSURE ELEVATED 00:00: Herm hang BLOOD 00 PRESSURE Inactive 12/02/2010 [facility] VACCINE Condition Inactiv 2010-022014-06-01 2014-06-01 Memoria AGAINST e 0-17 10:25:00 10:25:00 l INFLUENZA VACCINE 00:00: [place] hang AGAINST 00 INFLUENZA Inactive 12/02/2010 [facility] VACCINE Condition Inactiv 2010-022014-06-01 2014-06-01 Memoria AGAINST e 0-17 10:25:00 10:25:00 l STREPTOCOC VACCINE 00:00: Her pfeiffer CUS AGAINST 00 PNEUMONIAE STREPTOCOC CUS PNEUMONIAE Inactive 12/02/2010 [facility] Allergies, Adverse Reactions, Alerts Allergy Allergy Status Severity Reaction(s) Onset Inactive Treating Comm ents Source Name Type Date Date Clinician NORMICHELL NORVASC Active Memoria 5-30 l 00:00: [place] 00 LISINOPR LISINOPR Active 2010-02 Memori a [place] 1-22 l 00:00: [place] 00 Social History Social Habit Start Date Stop Date Quantity Comments Source Sex Assigned At [facility] ethodist Alcohol intake 2016-04-01 2016-04-01 Current [facility] thodist 00:00:00 00:00:00 non-drinker of alcohol (finding) Smoking Status Start Date Stop Date Source Never smoker [place] [facility] Medications Ordered Filled Start Stop Current Ordering Indication Dosage Frequency Signature Comments Components Source Medication Medication Date Date Medication? Clinician (SIG) Name Name ANDROGEL 2014-1 Yes apply two Walter kami PUMP 20.25 0-15 pumps to l MG/ACT 00:00: skin daily Miriam nn (1.62%) GEL 00 AMOXICILLIN No 1 tab po Me moria -POT 6-24 twice l CLAVULANATE 00:00: daily x 10 Josue 875-125 MG 00 days for TABS infection CYCLOBENZAP No 1/2- 1 tab Memoria RINE HCL 10 6-24 nightly as l MG TABS 00:00: needed for Herm hang 00 muscle spasms CYCLOBENZAP Yes 1/2- 1 tab Memoria RINE HCL 10 6-24 nightly as l MG TABS 00:00: needed for Herm hang 00 muscle spasms AMOXICILLIN Yes 1 tab po Me moria -POT 6-24 twice l CLAVULANATE 00:00: daily x 10 [place] 875-125 MG 00 days for TABS infection HYDROCHLORO Yes one daily M emoria THIAZIDE 25 4-03 l MG TABS 00:00: [place] 00 ANDROGEL No Apply 2 Memori a PUMP 20.25 2-05 pumps to l MG/ACT 00:00: skin once Chip n (1.62%) GEL 00 daily ZOSTAVAX No administer Mem oria 60961 1-27 one dose l UNT/0.65ML 00:00: as [place] SOLR 00 directed PERMETHRIN No apply from M emoria 5 % CREA 1-27 head to l 00:00: toes , Josue 00 leave for at least 8 hrs , then wash off; repeat in 14 days HYDROXYZINE No 1/2 - 1 Mem oria HCL 50 MG 1-27 tab every l TABS 00:00: 6 hr prn Josue itch ZOSTAVAX No administer Mem oria [id number] 1-27 one dose l UNT/0.65ML 00:00: as [place] SOLR 00 directed HYDROXYZINE No 1/2 - 1 Mem oria HCL 50 MG 1-27 tab every l TABS 00:00: 6 hr prn [place] itch SINGULAIR Yes 1 po once Mem oria 10 MG TABS 2-21 daily when l 00:00: needed Josue 00 SINGULAIR Yes 1 po qpm Walter kami 10 MG TABS 2-21 l 00:00: ZOCOR 20 MG Yes 1 PO QHS Me moria TABS 2-01 (cholester l 00:00: ol) ZOCOR 20 MG Yes 1 PO QHS Me moria TABS 2-01 (cholester l 00:00: ol) PROCTOFOAM No apply per Me moria HC 1-1 % 1-25 rectal l FOAM 00:00: tid prn itch/pain CICLOPIROX No apply to Mem oria OLAMINE 1-25 infected l 0.77 % CREA 00:00: feet bid He until resolves DESOXIMETAS No apply to Me moria ONE 0.05 % 1-25 affected l OINT 00:00: areas bid prn rash/ itch PROCTOFOAM No apply per Me moria HC 1-1 % 1-25 rectal l FOAM 00:00: tid prn itch/pain CICLOPIROX No apply to Mem oria OLAMINE 1-25 infected l 0.77 % CREA 00:00: feet bid He rm until resolves CIPRO 500 2011-02 No 1 po BID Awlter kami MG TABS 1-15 l 00:00: PROMETHAZIN 2011-02 No 1 po q6h Me moria E HCL 25 MG 1-15 prn nausea l TABS 00:00: FIORICET 2011-02 No 1 po q6h Memor ia 50-325-40 1-15 prn l MG TABS 00:00: Headache Chip n 00 CIPRO 500 2011-02 No 1 po BID Walter kami MG TABS 1-15 l 00:00: PROMETHAZIN 2011-02 No 1 po q6h Me moria E HCL 25 MG 1-15 prn nausea l TABS 00:00: FOLBIC No 1 tab po Memoria 2.5-25-2 MG 9-20 qd l TABS 00:00: FOLBIC No 1 tab po Memoria 2.5-25-2 MG 9-20 qd l TABS 00:00: [place] 00 KEFLEX 500 No 1 tid for Me moria MG CAPS 8-01 10 days l 00:00: for [place] 00 infection SPIRONOLACT No 1 tab po Me moria ONE 50 MG 8-01 qd l TABS 00:00: (swelling [place] 00 and hypertensi on) SPIRONOLACT No 1 tab po Me moria ONE 50 MG 8-01 qd l TABS 00:00: (swelling Josue and hypertensi on) VICOPROFEN No 1 tab po Mem oria 7.5-200 MG 6-15 q6h prn l TABS 00:00: prn pain Jos[place] ( max : 5 per day) VICOPROFEN No 1 tab po Mem oria 7.5-200 MG 6-15 q6h prn l TABS 00:00: prn pain [place] ( max : 5 per day) NORVASC 5 No 1 tab po Walter kami MG TABS 6-08 qd l 00:00: [place] NORVASC 5 No 1 tab po Walter kami MG TABS 6-08 qd l 00:00: [place] FUROSEMIDE No 1 tab po Mem oria 20 MG TABS 5-30 qd prn l 00:00: (leg Josue swelling) HYZAAR No 1 tab po Memoria 100-25 MG 5-30 qd l TABS 00:00: [place] CICLOPIROX No apply bid Me moria OLAMINE 5-30 to feet l 0.77 % CREA 00:00: until Miriam nn 00 healed FUROSEMIDE No 1 tab po Mem oria 20 MG TABS 5-30 qd prn l 00:00: (leg [place] swelling) HYZAAR No 1 tab po Memoria 100-25 MG 5-30 qd l TABS 00:00: [place] CICLOPIROX No apply bid Me moria OLAMINE 5-30 to feet l 0.77 % CREA 00:00: until Miriam nn 00 healed CEFDINIR No 2 caps po Walter kami 300 MG CAPS 5-09 qd for 10 l 00:00: days CEFDINIR 2011-0 No 2 caps po Walter kami 300 MG CAPS 5-09 qd for 10 l 00:00: days AMLODIPINE 2011-0 No 1 tab po Mem oria BESYLATE 10 5-07 qd l MG TABS 00:00: SINGULAIR 2011-0 No 1 daily at Me moria 10 MG TABS 5-07 bedtime l 00:00: AMLODIPINE 2011-0 No 1 tab po Mem oria BESYLATE 10 5-07 qd l MG TABS 00:00: SINGULAIR 0 No 1 daily at Me moria 10 MG TABS 5-07 bedtime l 00:00: AVODART 0.5 2011-0 No 1 tab po Me moria MG CAPS 4-11 qd l 00:00: COZAAR 100 2011-0 No 1 tab po Mem oria MG TABS 2-16 qd l 00:00: COZAAR 100 0 No 1 tab po Mem oria MG TABS 2-16 qd l 00:00: ZOCOR 20 MG 2011-0 No 1 tab po Me moria TABS 1-11 qd l 00:00: ZOCOR 20 MG 2011-0 No 1 tab po Me moria TABS 1-11 qd l 00:00: BACTRIM DS 2010-02 No one tab po M emoria 800-160 MG 2-16 bid l TABS 00:00: SINGULAIR 2010-02 No 1 daily at Me moria 10 MG TABS 1-22 bedtime l 00:00: PROAIR HFA 2010-02 No 2 puffs Walter kami 108 (90 1-22 inhaled l BASE) 00:00: every 4 Josue MCG/ACT 00 hrs as AERS needed for chest tightness/ SOB/cough SINGULAIR 2010-02 No 1 daily at Me moria 10 MG TABS 1-22 bedtime l 00:00: PROAIR HFA 2010-02 No 2 puffs Walter kami 108 (90 1-22 inhaled l BASE) 00:00: every 4 Josue MCG/ACT 00 hrs as AERS needed for chest tightness/ SOB/cough LISINOPRIL 2010-02 No 1 po qd Walter kami 20 MG TABS 0-21 l 00:00: [place] 00 FLOMAX 0.4 2010-02 No 1 cap po Mem oria MG CAPS 0-17 qpm (30 l 00:00: mins after Josue 00 same meal) FLOMAX 0.4 2010-02 No 1 cap po Mem oria MG CAPS 0-17 qpm (30 l 00:00: mins after Josue 00 same meal) Vital Signs Vital Name Observation Time Observation Value Comments Source Height 2014-05-30 17:59:11 [facility] Weight 2014-05-30 17:59:11 [facility] Temperature Oral (F) 2014-05-30 17:59:11 96.4 F [facility] [place] Systolic (mm Hg) 2014-05-30 17:59:11 Walter rial Jos[place] Diastolic (mm Hg) 2014-05-30 17:59:11 Mem orial [place] Heart Rate 2014-05-30 17:59:11 [facility] [place] Weight 2013-08-09 12:39:51 [facility] Temperature Oral (F) 2013-08-09 12:39:51 96.7 F [facility] [place] Systolic (mm Hg) 2013-08-09 12:39:51 Walter rial [place] Diastolic (mm Hg) 2013-08-09 12:39:51 Mem orial [place] Heart Rate 2013-08-09 12:39:51 [facility] [place] Weight 2013-06-29 13:04:21 [facility] [place] Temperature Oral (F) 2013-06-29 13:04:21 96.8 F [facility] [place] Systolic (mm Hg) 2013-06-29 13:04:21 Walter rial Jos[place] Diastolic (mm Hg) 2013-06-29 13:04:21 Mem orial [place] Heart Rate 2013-06-29 13:04:21 [facility] Weight 2013-05-19 18:00:41 [facility] [place] Temperature Oral (F) 2013-05-19 18:00:41 96.8 F [facility] [place] Respitory Rate 2013-05-19 18:00:41 Memori al [place] Heart Rate 2013-05-19 18:00:41 [facility] [place] Systolic (mm Hg) 2013-05-19 18:00:41 Walter rial [place] Diastolic (mm Hg) 2013-05-19 18:00:41 Mem orial [place] Weight 2013-03-14 18:38:30 [facility] [place] Respitory Rate 2013-03-14 18:38:30 Memori al [place] Temperature Oral (F) 2013-03-14 18:38:30 98.3 F [facility] [place] Heart Rate 2013-03-14 18:38:30 [facility] [place] Systolic (mm Hg) 2013-03-14 18:38:30 Walter rial [place] Diastolic (mm Hg) 2013-03-14 18:38:30 Mem orial Josue Weight 2012-03-12 20:35:31 [facility] Temperature Oral (F) 2012-03-12 20:35:31 98.5 F [facility] Respitory Rate 2012-03-12 20:35:31 Memori al [place] Heart Rate 2012-03-12 20:35:31 [facility] [place] Systolic (mm Hg) 2012-03-12 20:35:31 Walter rial [place] Diastolic (mm Hg) 2012-03-12 20:35:31 Mem orial [place] Weight 2012-01-01 22:21:02 [facility] [place] Temperature Oral (F) 2012-01-01 22:21:02 98.1 F [facility] Systolic (mm Hg) 2012-01-01 22:21:02 Walter rial [place] Diastolic (mm Hg) 2012-01-01 22:21:02 Mem orial [place] Heart Rate 2012-01-01 22:21:02 [facility] [place] Weight 2011-10-29 15:46:55 [facility] [place] Respitory Rate 2011-10-29 15:46:55 Memori al [place] Heart Rate 2011-10-29 15:46:55 [facility] [place] Systolic (mm Hg) 2011-10-29 15:46:55 Walter rial [place] Diastolic (mm Hg) 2011-10-29 15:46:55 Mem orial Josue Temperature Oral (F) 2011-10-29 15:46:55 98.1 F [facility] [place] Weight 2011-09-17 13:32:22 [facility] [place] Temperature Oral (F) 2011-09-17 13:32:22 97.1 F [facility] Respitory Rate 2011-09-17 13:32:22 Memori al [place] Heart Rate 2011-09-17 13:32:22 [facility] [place] Systolic (mm Hg) 2011-09-17 13:32:22 Walter rial Josue Diastolic (mm Hg) 2011-09-17 13:32:22 Mem orial [place] Weight 2011-08-04 14:11:21 [facility] [place] Temperature Oral (F) 2011-08-04 14:11:21 97.5 F [facility] [place] Respitory Rate 2011-08-04 14:11:21 Memori al [place] Systolic (mm Hg) 2011-08-04 14:11:21 Walter rial [place] Diastolic (mm Hg) 2011-08-04 14:11:21 Mem orial [place] Heart Rate 2011-08-04 14:11:21 [facility] Weight 2011-07-25 13:28:51 [facility] Temperature Oral (F) 2011-07-25 13:28:51 96.1 F [facility] Respitory Rate 2011-07-25 13:28:51 Memori al [place] Heart Rate 2011-07-25 13:28:51 [facility] [place] Systolic (mm Hg) 2011-07-25 13:28:51 Walter rial Josue Diastolic (mm Hg) 2011-07-25 13:28:51 Mem orial [place] Weight 2011-07-16 18:44:51 [facility] [place] Temperature Oral (F) 2011-07-16 18:44:51 96.6 F [facility] [place] Heart Rate 2011-07-16 18:44:51 [facility] [place] Systolic (mm Hg) 2011-07-16 18:44:51 Walter rial Jos[place] Diastolic (mm Hg) 2011-07-16 18:44:51 Mem orial [place] Weight 2011-06-25 18:04:42 [facility] [place] Temperature Oral (F) 2011-06-25 18:04:42 96.6 F [facility] [place] Systolic (mm Hg) 2011-06-25 18:04:42 Walter rial [place] Diastolic (mm Hg) 2011-06-25 18:04:42 Mem orial [place] Heart Rate 2011-06-25 18:04:42 [facility] [place] Respitory Rate 2011-06-25 18:04:42 Memori al [place] Weight 2011-05-28 13:27:22 [facility] Temperature Oral (F) 2011-05-28 13:27:22 96.7 F [facility] [place] Systolic (mm Hg) 2011-05-28 13:27:22 Walter rial Josue Diastolic (mm Hg) 2011-05-28 13:27:22 Mem orial [place] Heart Rate 2011-05-28 13:27:22 [facility] Systolic (mm Hg) 2011-02-26 15:54:10 Walter rial Josue Diastolic (mm Hg) 2011-02-26 15:54:10 Mem orial [place] Weight 2011-02-26 15:54:10 [facility] Temperature Oral (F) 2011-02-26 15:54:10 96.6 F [facility] Respitory Rate 2011-02-26 15:54:10 Memori al [place] Heart Rate 2011-02-26 15:54:10 [facility] [place] Weight 2011-01-31 15:27:50 [facility] [place] Respitory Rate 2011-01-31 15:27:50 Memori al [place] Heart Rate 2011-01-31 15:27:50 [facility] Systolic (mm Hg) 2011-01-31 15:27:50 Walter rial [place] Diastolic (mm Hg) 2011-01-31 15:27:50 Mem orial [place] Temperature Oral (F) 2011-01-31 15:27:50 96.8 F [facility] Weight 2011-01-07 21:43:01 [facility] Respitory Rate 2011-01-07 21:43:01 Memori al [place] Temperature Oral (F) 2011-01-07 21:43:01 97.5 F [facility] Heart Rate 2011-01-07 21:43:01 [facility] [place] Systolic (mm Hg) 2011-01-07 21:43:01 Walter rial [place] Diastolic (mm Hg) 2011-01-07 21:43:01 Mem orial Jos[place] Height 2010-12-02 15:25:10 [facility] Weight 2010-12-02 15:25:10 [facility] [place] Respitory Rate 2010-12-02 15:25:10 Memori al [place] Heart Rate 2010-12-02 15:25:10 [facility] [place] Systolic (mm Hg) 2010-12-02 15:25:10 Walter rial Jos[place] Diastolic (mm Hg) 2010-12-02 15:25:10 Mem orial [place] Temperature Oral (F) 2010-12-02 15:25:10 97.9 F [facility] Procedures Procedure Date / Time Performed Performing [facility] 15:03:45 Ros pfeiffer Plan of Care Planned Activity Planned Date Details Comments Source Future Scheduled 2022-02-16 COLONOSCOPY SCREENING [facility] 00:00:00 [code = COLONOSCOPY SCREENING] Future Scheduled 2019-09-17 INFL[place]ENZA VACCINE [place] [facility] 00:00:00 [code = INFLUENZA VACCINE] Future Scheduled 2008-07-11 65+ PNEUMOCOCCAL [facility] 00:00:00 VACCINE (1 of 2 - PCV13) [code = 65+ PNEUMOCOCCAL VACCINE (1 of 2 - PCV13)] Future Scheduled 1993-07-11 SHINGLES VACCINES (#1) [place] [facility] 00:00:00 [code = SHINGLES VACCINES (#1)] Encounters Start End Encounter Admission Attending Care Care Encounter Source Date/Time Date/Time Type Type Clinicians Facility Department ID 2019-08-18 2019-08-18 Emergency E [facility] [id number] [facility] 13:17:00 13:17:00 2019-08-16 2019-08-16 Emergency E [facility] [id number] [facility] 17:20:00 17:20:00 2019-03-27 2019-03-27 Emergency E [facility]BL [facility] [id number] [facility]BL 09:28:00 09:28:00 Results Test Description Test Time Test Comments Results Result Comments Source Chemistry 2014-06-01 201 [facility] Miriam nn 15:25:00 Chemistry 2014-06-01 63 [facility] nn 15:25:00 Chemistry 2014-06-01 68 [facility]iam nn 15:25:00 Chemistry 2014-06-01 120 [facility] Miriam nn 15:25:00 Chemistry 2014-06-01 2.6 [facility] Miriam nn 15:25:00 Chemistry 2014-06-01 137 MEQ/L [facility]iam nn 15:25:00 Chemistry 2014-06-01 4.2 MEQ/L [facility] Miriam nn 15:25:00 Chemistry 2014-06-01 1.2 [facility] Miriam nn 15:25:00 Chemistry 2014-06-01 12 [facility] nn 15:25:00 Chemistry 2014-06-01 15:25:00 Test Item Value Reference Range Interpretation Comme nts BUN/CREAT (test code = BUN/CREAT) 10 1 6-25 [facility] UrdbbvlKoskgmisw8651-09-77 15:25:004.1[facility] 2014-06-01 15:25:009.6[facility] IrtqylpNyhzaiozz4434-56-64 15:25:0034[facility] DxvnkmrKmedysbzk0478-23-35 15:25:0027[facility] EfccrsoEwvcfbamy3679-15-49 15:25:0067[facility] NbpttjoLmbvymigw0880-28-29 15:25:56675Kqciayar Josue Ncswociiu0638-46-76 15:25:0086.2[facility] PtggvhfEfyedwwusr5936-17-10 15:25:00 Light YellowMem[facility] SuepnvlImocfjdjqi9688-70-16 17:23:00[facility] [place] Dgkkqlhahk8781-22-76 17:23:00[facility] ZoijyjiWpnsinrfcr9139-29-32 17:23:00 Yellow[facility] NilarmiXoccvzegy2706-44-79 13:39:88271 MEQ/LMemorial Josue Hqsbieymi7850-40-52 13:39:24744 MEQ/LMemorial PtxipbxXpalmmljh5253-49-13 13:39:004.5 MEQ/LMemorial YtvtxujGvmaecbnx7279-87-23 13:39:001.0[facility] Wkssllvfq1429-02-43 13:39:0010[facility] DonqpicHpdvkbfvl6728-70-56 13:39:00 Test Item Value Reference Range Interpretation Comments BUN/CREAT (test code = BUN/CREAT) 10 08-10 [facility] GfsjhnpZuagrcqjf7844-54-57 13:39:004.3[facility] 2013-08-09 13:39:009.3[facility] VfeptfxTzvargidu8321-83-74 13:39:0062[facility] BszpyvoHwgbbftix2558-76-28 13:39:0056[facility] BaitrrnGxjqcxyjl6080-38-15 13:39:46797 MEQ/LMemorial VwzrswvFejmngakr4959-30-71 13:39:99993 ME[facility]/L[facility] GtcjqweAgnrebeeu5460-86-49 13:39:004.5 ME[facility]/L[facility] XbqmkleWsthwwqju9928-00-00 13:39:001.0[facility] IthjoxeGbatzkzty9068-31-11 13:39:0010[facility] Wkfhhuwkv8857-63-19 13:39:00 Test Item Value Reference Range Interpretation Comments BUN/CREAT (test code = BUN/CREAT) 10 08-10 [facility] HucrkckViuozabti7217-03-30 13:39:004.3[facility] 2013-08-09 13:39:009.3[facility] EtppyauMfxvogxkl7589-77-39 13:39:0062[facility] RamjkpuDcuywczjv7511-26-04 13:39:0056[facility] PkqrapvZacfmwxzt1767-28-50 13:39:0073[facility] OgupdlwDbwxacdue3794-99-42 13:39:0073[facility] Lxrqheghgr4235-63-65 13:39:0014.3[facility] FutjqszXatmzqpkxc5923-61-96 13:39:00 43.4[facility] McxqcbgSxkzlvkkwj8249-00-08 13:39:33433 K/CMMMem[facility] Efvmrbwcxp2041-95-22 13:39:0014.3[facility] NlqcstbKecbohizcu9493-58-40 13:39:00 43.4[facility] HaqhhufLkvrtkrrli5494-52-72 13:39:82950 K/CMMM[facility] Wedaszapo4332-96-05 13:54:81737 MEQ/LMem[facility] LsuuckhGyqxtktyq2890-34-79 13:54:11146 MEQ/LMem[facility] LnmzwcrUcrqmakhq0439-25-25 13:54:005.0 [facility]/L[facility] EtmbldwCanabnwll2147-98-11 13:54:001.1[facility] OdcurnaHjgbjbuxf7488-90-78 13:54:0013[facility] PstzbtjWlvizbcvd8578-08-82 13:54:00 Test Item Value Reference Range Interpretation Comments BUN/CREAT (test code = BUN/CREAT) 12 08-10 [facility] SurptqhMneovgahi6289-10-49 13:54:004.4[facility] 2013-06-29 13:54:009.8[facility] YfdzmndCoafqdtvn6363-11-93 13:54:0041[facility] NgasmofEjrwqsaqz8498-60-49 13:54:0030[facility] MipbamlQyvqrmojj8506-24-92 13:54:0074[facility] AnqaikqTsuxsjglp5126-42-47 13:54:78039Mrrakicu [place] Vdzyvytyx5323-06-75 14:27:91100Yycotsha GwqdqftTftmmzlpj4537-72-77 14:27:04938 [facility] TrwjasbWshxhxmys8832-71-74 14:26:005.7[facility] 2013-03-17 14:26:005.7[facility] TnpqbdlGikfeqbej7518-25-95 14:26:08617Pmmhgfil PohpzvmGcixbdprv5878-44-30 14:26:0088[facility] NbmxjltXjmvqptfh6926-00-04 14:26:0066[facility] FrjbwnuYiprwwbnp6777-80-63 14:26:90285Verrgbak [place] Fcgsmtivf4968-09-76 14:26:54857 MEQ/LMemorial IeyahviUlgzqmfbt6750-74-27 14:26:005.5 MEQ/LMem[facility] XtxuwyzBihylkbru1243-66-79 14:26:001.1[facility] Khlspkzyt0190-31-12 14:26:0013[facility] PsirnjsQasuutdom6102-64-67 14:26:00 Test Item Value Reference Range Interpretation Comments BUN/CREAT (test code = BUN/CREAT) 12 1 - [facility] XofberoIfzelxxqo6386-14-12 14:26:004.2[facility] 2013-03-17 14:26:009.3[facility] AomwxrrTlozilnhf2976-16-22 14:26:0051[facility] KerqsaiYeruqouyc7767-86-30 14:26:0035[facility] KwbfglbCvqtgphiv4524-05-42 14:26:0071[facility] EcmicglVbeaorgpd0105-58-31 14:26:001.260[facility] Gnttikukh8004-24-71 14:26:005.7[facility] AfvobpfInhllpqcb4638-37-99 14:26:005.7 [facility] PfxhntzMlfrogyeq8329-54-34 14:26:69739Ksoitkul [facility] 2013-03-17 14:26:0088[facility] WocoxrjKichstlbw8818-39-42 14:26:0066[facility] SoviousSelxbfzdo1991-54-45 14:26:57481Xiddfgzr GiagdpsMrmaqsunr5389-48-97 14:26:02907 MEQ/LMem[facility] HeetzavVcglnnzxh3146-05-11 14:26:005.5 MEQ/LMem[facility] WkmtwulOyqxfkfrp5358-96-02 14:26:001.1[facility] LvpsyrbZitntbxak2172-21-74 14:26:0013[facility] CohymfmAojlnclln6938-59-89 14:26:00 Test Item Value Reference Range Interpretation Comments BUN/CREAT (test code = BUN/CREAT) 12 08-10 [facility] GgftfyyLikjpwbqb5887-11-10 14:26:004.2[facility] 2013-03-17 14:26:009.3[facility] GqaaggmPodqfgbsc9690-90-94 14:26:0051[facility] TzzcizpFhqetjgso3347-77-82 14:26:0035[facility] RdglkzuWhvaetggu5137-52-82 14:26:0071[facility] ZtpgqajYorvmzlbu1428-05-86 14:26:001.260[facility] Ohvhwbgui5468-91-56 14:26:001.89[facility] AaykfydOmecylqyg4000-81-13 14:26:001.89 [facility] EwwdiioGtppbfduzv6936-96-09 14:26:0014.3[facility] 2013-03-17 14:26:0043.6[facility] OubxzjlMnuhymejwg3208-96-68 14:26:93591 K/CMM [facility] MyofiaiBrhgariexx2960-37-16 14:26:0014.3[facility] 2013-03-17 14:26:0043.6[facility] QebpehtStnfhllvcu1070-06-61 14:26:34953 K/CMM [facility] IjgoilsHyjgwchflx8536-80-56 14:26:00YellowMemorial HermannUrinalysis 2013-03-17 14:26:00YellowMemorial FwizzhqZwihegmxaj7909-53-16 14:26:00Occasional [facility] JnodyeqOpcpwxzus8928-94-74 15:20:44159Vvrbwokv [facility] 2012-07-19 15:20:29193Cispuknv FfzftfrOezqbiaae0773-38-55 15:20:0095[facility] MchecdaLjlnjbwks7485-71-05 15:20:0058[facility] RadxvkvRysjhnbim1278-37-66 15:20:42598 MEQ/LMemorial UiqugfdXexmziitc7094-77-44 15:20:004.4 MEQ/LMemorial TlqieqdJczxasrbm7892-48-15 15:20:001.1[facility] PywmsbiKkueugfpt8713-98-73 15:20:0011[facility] BicagzhSegrpsokp8073-55-40 15:20:00 Test Item Value Reference Range Interpretation Comments BUN/CREAT (test code = BUN/CREAT) 10 1 6-25 [facility] HztbtgySzpfmdvkf4642-12-64 15:20:004.4[facility] 2012-07-19 15:20:009.3[facility] QnhsdlbCxfjnlgyl4893-86-12 15:20:0053[facility] JmbvlpeLusnxlrkd3052-57-36 15:20:0037[facility] OiuenneOftdlryxx2655-32-13 15:20:58806Wxqocicx HpjdmcmHzordgqfw7408-59-02 15:20:33391Xkhtolpz [facility] Thkxuorux3658-33-50 15:20:0095[facility] CoczbadVwgodiygt5708-22-14 15:20:0058 [facility] SnipxxpBauhggvkg6309-71-39 15:20:0097[facility] 2012-07-19 15:20:79027 MEQ/LMemorial YzsrhwqBfvuvopye2045-89-20 15:20:004.4 MEQ/LMemorial HhdmlabZlvtxwrwy2408-04-72 15:20:001.1[facility] 2012-07-19 15:20:0011[facility] HnrtqqnRyibjsalr9435-37-95 15:20:00 Test Item Value Reference Range Interpretation Comments BUN/CREAT (test code = BUN/CREAT) 10 02 21- [facility] DlkrfpaTjgcqwwua9175-32-66 15:20:004.4[facility] 2012-07-19 15:20:009.3[facility] EfnynaoZlcmrtdhe0803-72-63 15:20:0053[facility] AzdsjaoAxklnmioy1440-73-08 15:20:0037[facility] RcdaxcgZszblnruf0727-65-10 15:20:0072[facility] UmgzcvxOmdrltcru6609-51-02 15:20:0072[facility] [place] Utnubmxvj1049-04-05 15:56:001.52[facility] IcgdbdtYhkxpnshm0277-57-88 15:56:001.52 [facility] JgkuawaSlgsoroce4975-12-49 15:55:005.9[facility] 2012-03-16 15:55:005.9[facility] HqprjfuInvqskayy0582-58-20 15:55:72944Zaiippaz LrvserbOhthcnded0981-48-58 15:55:0083[facility] BrzfvkwJdqqpaiuw9967-30-32 15:55:0058[facility] PqqhpjwQxlvglxth9831-96-30 15:55:74127Xmawxwdl [place] Lygehxhuk4839-56-44 15:55:06754 MEQ/LMemorial UcsyxeuPbpbefdzu6817-84-38 15:55:004.6 MEQ/LMem[facility] TtijevrAbwyvfwug9783-45-99 15:55:001.0[facility] Ldvmzxgnv6134-95-51 15:55:0011[facility] LebkbwrHvygkorck3343-68-08 15:55:00 Test Item Value Reference Range Interpretation Comments BUN/CREAT (test code = BUN/CREAT) 11 08-10 [facility] InsssusStuqjwqco4896-17-48 15:55:004.3[facility] 2012-03-16 15:55:009.4[facility] XmpryjbJqslbybap6996-57-34 15:55:0051[facility] JdizixyEzdwfuxgw8994-49-64 15:55:0033[facility] XjkbtbhTebxaumgk4815-62-52 15:55:0064[facility] JnrrcykLyyfsffco5736-50-99 15:55:01939Uvsqdohh [place] Jvmvpoukj6631-04-04 15:55:96767Kijcfnfk PncupxqYyujdcsga1966-10-96 15:55:74064 [facility] CcviomeFdkiczedi8464-40-41 15:55:0025.1[facility]ann[facility] 2012-03-16 15:55:0014.6[facility] KmxavcbRlgqqbbiqu5415-29-46 15:55:0043.8[facility] ArscgzpWaycblzbdd2220-51-46 15:55:69408 K/CMMMemorial GbuzlbtIntuicznq3037-57-81 17:15:13462Qpulbzgn AewvyvmMgbympmqv9265-63-98 17:15:83754Ygjhduie [place] Mvnnekhsy2381-32-97 17:15:43547 MEQ/LMem[facility] FrheitoCmakskjae1560-27-72 17:15:005.1 MEQ/LMemorial ZrupdeqDldbshjde5590-87-34 17:15:001.5[facility] [place] Kndnohsun0372-48-58 17:15:0026[facility] VdwptnvHslyuyfbi6423-28-54 17:15:00 Test Item Value Reference Range Interpretation Comments BUN/CREAT (test code = BUN/CREAT) 17 1 6-25 [facility] WjpizkhJychziydf1646-44-35 17:15:004.7[facility] 2011-10-29 17:15:0010.1[facility] HxkhnqvUyyltiabz6969-29-97 17:15:0045[facility] HdathqhIwxmlwrdw6836-48-16 17:15:0017[facility] EkientfCnglocwqm4743-73-71 17:15:0055[facility] ImvzwqeHimmseyii0157-70-86 17:15:32894Ghsraynd [facility] Qipjrngcb2824-22-84 17:15:56115Wrgfghmk VgjwsdeGuuuywafg5680-26-77 17:15:14382 [facility] SnjmmxwLowqsbeyc5504-88-81 17:15:94638Yiifpndq [facility] 2011-10-29 17:15:47945Nwuyomdj TnukkelCvksxqhsh4997-51-80 17:15:0097[facility] KmmwlsjEczydzqwf9422-93-07 17:15:0050[facility] OqwcawrNrbpmsoqk2104-81-28 17:15:23158Pbbjxrgp QjxqbnqUwshclyjc1177-42-03 17:15:74135 [facility]/L[facility] [place] Zdlospzgg2511-28-91 17:15:005.1 MEQ/LMemorial SyfxdfhEcdlokchb4276-85-77 17:15:001.5[facility] LtpioplWpebhalzk0265-95-22 17:15:0026[facility] Qumvvfcyq9768-66-27 17:15:00 Test Item Value Reference Range Interpretation Comments BUN/CREAT (test code = BUN/CREAT) 17 1 6-25 [facility] MxkocdkZxpyzakoy3228-21-36 17:15:004.7[facility] 2011-10-29 17:15:0010.1[facility] SomwvglTdmspploz8073-73-72 17:15:0045[facility] CdcwmjrQqqbsmwhp0670-74-62 17:15:0017[facility] BeaytkcQyyhapdqx7368-29-36 17:15:0055[facility] QcgbgdeEjruoxjcp4197-12-22 17:15:43524Dznpnymp [facility] Tvfdnfdxi7700-62-84 17:15:61928Ncfbphki ZosugznWcozoamto5714-37-17 17:15:85744 [facility] CsxlrepImchcwhsm0640-72-61 17:15:006.9[facility] 2011-10-29 17:15:006.9[facility] ObumfytWwcahxgakw1052-72-86 17:15:0012.3[facility] BexwfssSdusbyeorv0793-74-50 17:15:0036.9[facility] TwqiuxkPcakgokmln4426-00-26 17:15:38026 K/CMMMemorial XiusfzyPimzonsjxz9784-36-83 17:15:0012.3[facility] YxnysbzFxyyoxovff6793-80-96 17:15:0036.9[facility] OjlmxycHheiemccpp8539-40-23 17:15:36794 K/CMMMemorial IoymmgfJwkcctgvg4169-26-96 17:55:0080[facility] Qecnzcavi1308-38-01 17:55:0080[facility] XxyzoejIqxgswckb6516-54-81 17:55:72493 [facility] XgumxypMrogltnst1146-63-77 17:55:75508Idtxgicb [facility] 2011-09-18 17:55:0013.3[facility] HsusutxKsiophboy9138-70-78 17:55:87487 MEQ/L [facility] WplvrqmZhblenpdm1693-88-90 17:55:003.9 MEQ/L[facility]Chem[facility] 2011-09-18 17:55:0023[facility] PlspoxrPfgtshbdd4766-88-25 17:55:001.5[facility] ZiuueezMjlmubfzh7748-58-66 17:55:00 Test Item Value Reference Range Interpretation Comments BUN/CREAT (test code = BUN/CREAT) 15 1 6-25 [facility] CgiemphCkbajktxk1424-66-14 17:55:004.5[facility] 2011-09-18 17:55:009.8[facility] WawaewnSvmqsqqgj9235-75-33 17:55:0025[facility] UvxgcrtIspgtbual5148-31-77 17:55:0037[facility] BnexhxmJfprnwpqn3206-07-90 17:55:0054[facility] DrhxzaiWhehsxshhwi7082-36-38 17:55:00 Test Item Value Reference Range Interpretation Comments PT PATIENT (test code = PT PATIENT) 12.9 s 12.0-14.7 [facility] UpowpohVxoeqacbsuc7202-47-02 17:55:00 Test Item Value Reference Range Interpretation Comments INR (test code = INR) 0.95 1 0.85-1.17 [facility] MxnzjatGbldcizbbks5783-60-49 17:55:00 Test Item Value Reference Range Interpretation Comments PTT PATIENT (test code = PTT PATIENT) 32.2 s 22.9-35.8 [facility] LvstswpOorhvosqqqd3376-82-16 17:55:00 Test Item Value Reference Range Interpretation Comments PT PATIENT (test code = PT PATIENT) 12.9 s 12.0-14.7 [facility] FvrzfioXmsinhllohe8493-34-56 17:55:00 Test Item Value Reference Range Interpretation Comments INR (test code = INR) 0.95 1 0.85-1.17 [facility] FpdpnenMhaqbqvzybz8190-74-81 17:55:00 Test Item Value Reference Range Interpretation Comments PTT PATIENT (test code = PTT PATIENT) 32.2 s 22.9-35.8 [facility] CtcpgxjJnyldbcvhe7662-22-97 17:55:0013.2[facility] 2011-09-18 17:55:0038.7[facility] XlahqqfWoqxxghkjd5562-08-65 17:55:61558 K/CMM [facility] PaaumaaHxgtofykk7267-74-63 15:15:006.4[facility] 2011-08-04 15:15:006.4[facility] FoiwxvcMbbuyumwq6058-45-14 14:20:0034[facility] OdoynpvSqnwtnrce3684-84-22 14:20:0034[facility] HfsvuxxGrxztlemj6433-59-99 14:20:0034[facility] IsmidqdLejaaiugk7446-48-11 14:20:03583 [facility]/L[facility] [place] Jigdhcvwc9088-15-93 14:20:004.0 MEQ/LMem[facility] OftidyjHokthbqtx7832-97-76 14:20:0014[facility] YifxssvXuxfbyqvy9016-08-40 14:20:001.2[facility] [place] Wnabstqvn3341-59-44 14:20:00 Test Item Value Reference Range Interpretation Comments BUN/CREAT (test code = BUN/CREAT) 12 1 6-25 [facility] QftshwyQakahbzrl8031-99-40 14:20:004.7[facility] 2011-07-25 14:20:009.5[facility] ZprjygbBsimgikza0637-04-10 14:20:0037[facility] RwqumjnNjfbvnabe6354-20-00 14:20:0049[facility] UkwszreAclvyaniv4746-13-28 14:20:0034[facility] XmdnveoXpdjelvge8908-70-58 14:20:0066[facility] Iqjgixytj1959-64-81 16:50:003.4[facility] YyzpyarOdwfyfspm7803-51-56 16:50:003.4 [facility] EbznmhlBsauuuccz7831-25-67 16:50:003.4[facility] 2011-02-26 16:50:003.4[facility] AemrajqBwlzjpdnc0210-23-29 16:50:001.9[facility] VlaiezsNuywruvqp3267-12-60 16:50:0012[facility] GvajcypIvmufhnyz5593-27-03 16:50:001.1[facility] DxqtyumXiietgfue6321-16-90 16:50:78024 MEQ/L[facility] [place] Pbexhxgto9821-70-89 16:50:004.6 MEQ/LMem[facility] KyjqgoeExiiretjm0438-72-29 16:50:001.9[facility] TemfrryZgalyivmh9677-07-79 16:50:009.0[facility] [place] Vrtuzyswp6990-49-87 15:25:006.5[facility] RqjghpdAwcpagzlu2047-16-21 15:25:006.5 [facility] QumumwfZxapbjbit9346-48-11 15:25:74400Tnupakxu [facility] 2011-02-14 15:25:0090[facility] NfgmavbHgfmmuhof6281-99-65 15:25:0088[facility] SnrlmscGdvnocfwm8664-57-02 15:25:17571Ewrrvacn HneuabmBzcbqthbl2482-21-48 15:25:91842 MEQ/LMem[facility] McxpaqrEmnzoluhl7587-86-66 15:25:005.5 MEQ/LMem[facility] JlxdwwnJegjwejuz7142-89-05 15:25:001.2[facility] WlnhibmMspmprlhw1659-70-70 15:25:0014[facility] FqsbssbOeeynywjk3990-78-61 15:25:00 Test Item Value Reference Range Interpretation Comments BUN/CREAT (test code = BUN/CREAT) 12 02 21- [facility] EzssopuSybpltpzg9232-43-35 15:25:004.5[facility] 2011-02-14 15:25:009.9[facility] JttbbpyNfueurkhh1174-81-14 15:25:0037[facility] BggxshpGfqccvzit8524-51-93 15:25:0018[facility] NzmdapuGbdimozxg0894-36-66 15:25:0061[facility] WlfrdrgKatrvwond1658-01-76 13:00:11135Syjgikep [place] Hyqweaikd6620-24-08 13:00:92079Wucdsapb VdkfqguEgdbkfjsu2193-26-42 13:00:24853 [facility] LbxaobsTbjrentie0453-18-15 13:00:0050[facility] 2010-12-03 13:00:95806Shsjozoc SxeljmxPdqrzuzjf8433-03-56 13:00:001.360[facility] FhrhwqmMobpwvvxo3421-43-10 13:00:49999 MEQ/LMemorial MjtypiaWwizyxwou8585-56-51 13:00:004.6 MEQ/LMemorial NwltxgvKvjqpywop0791-99-05 13:00:0013[facility] Ashfbpbqj8685-61-32 13:00:001.2[facility] JrumncxYvohaaedm9227-63-78 13:00:00 Test Item Value Reference Range Interpretation Comments BUN/CREAT (test code = BUN/CREAT) 11 08-10 [facility] EwgujdmZmvgqqvht6084-32-26 13:00:004.1[facility] 2010-12-03 13:00:009.0[facility] SclodcwVkzhcovnn4659-66-61 13:00:0025[facility] MlpjeknBuodmirqt8118-23-63 13:00:0051[facility] MjmzvbtYvqcwupxk6667-73-74 13:00:0059[facility] PlfqqcxAgcsgzzty6488-17-97 13:00:82247Zpgatach [place] Vdclxqsrf5992-88-35 13:00:06620Aqvzrkwl SdrkxuiCnadjqrmd7292-30-88 13:00:08542 [facility] TsistzxKofddnsld7974-77-65 13:00:0050[facility] 2010-12-03 13:00:61097Mgxnwwcg NmfzkidAgulnwhfu0398-90-13 13:00:001.360[facility] YdszionWhctzuluh3036-54-70 13:00:68896 MEQ/LMemorial ZkgbtacGltmvxdgb2062-59-56 13:00:004.6 MEQ/LMemorial FkflxdxRoxihszil0579-52-72 13:00:0013[facility] [place] Pkauurloi1765-82-43 13:00:001.2[facility] SmqvszzBunjyjdlp4289-84-56 13:00:00 Test Item Value Reference Range Interpretation Comments BUN/CREAT (test code = BUN/CREAT) 11 1 6-25 [facility] LtqhsjdKoqyonyjq4497-06-58 13:00:004.1[facility] 2010-12-03 13:00:009.0[facility] DudifgxUjeggdihn3885-29-12 13:00:0025[facility] PjeaenxUzaaeurqo2017-86-94 13:00:0051[facility] OrsepfjPmonqayco8748-08-11 13:00:0059[facility] CsbnfatYpjemjebf8726-61-21 13:00:001.44[facility] [place] Fdgkazoqc2345-85-73 13:00:001.44[facility] AalsebvHnsmeaqiyw8347-73-32 13:00:00 14.7[facility] LtscyliIbfqiwbkxh4816-54-28 13:00:0042.9[facility] 2010-12-03 13:00:99470 K/CMMMemorial QcdronlMjemiulnwr3088-08-67 13:00:0014.7 [facility] NtkpezfBzoqwtbpkg9643-60-29 13:00:0042.9[facility] 2010-12-03 13:00:95661 K/CMMMemorial ZanamfhBgmyonhugg0049-45-44 13:00:00Yellow [facility] XlzctjzYjjwttzudk3367-41-21 13:00:00[facility] [place] Joljkzxntd1110-33-81 13:00:00YellowMemorial UjefpwxSvgrpvtohr7729-37-48 13:00:00 [facility]
[2019-08-21] MEDS ORDERED: NA CHLORIDE 0.9% 500 ML ONE (12:23)
[2019-08-21] MEDS ORDERED: predniSONE 20 MG TAB ONE (12:23)
[2019-08-21 12:32] LABS: Urine Bacteria <20 /HPF (NONE SEEN); Urine Culture Reflex Order NOT NEEDED; Urine RBC <5 /HPF (NONE SEEN)
[2019-08-21 12:32] LABS: Absolute Lymphocytes (CBC) 0.2 K/uL (0.7-4.9); Basophils % 0.3 % (0-1.3); Hematocrit 37.5 % (39.6-49.0); Lymphocytes % 2.8 % (15.3-44.8); MPV 7.3 fL (7.6-11.3); RBC Red Blood Cell Count 4.25 M/uL (4.33-5.43)
[2019-08-21 12:35] LABS: Protime INR 1.16
--- NOTE | 2019-08-21 12:56 | ER ---
Nurse's Notes [facility] Name: Jose A Mcgrath Age: 74 yrs Sex: Male : 1945 Arrival Date: 08/21/2019 Time: 11:13 Bed 19 Private MD: Diagnosis: Coronavirus infection, unspecified Presentation: 08/20 11:39 Chief complaint: Spouse and/or significant other states: COVID + on Wed, unable to sv control fever Tmax 101.5, increasing weakness and falls, and incontinent. Coronavirus screen: Surgical mask placed on patient. Patient moved to private room, placed in contact and droplet isolation with eye protection until further assessment. Patient reports a cough. Patient denies shortness of breath or difficulty breathing. Patient reports a measured and/or subjective temperature greater than 100.4F. Patient denies travel on a cruise ship or to a country the [facility] currently lists as an affected area. Patient reports contact with known and/or suspected case of COVID-19. Ebola Screen: No symptoms or risks identified at this time. Initial Sepsis Screen: Does the patient meet any 2 criteria? RR > 20 per min. No. Patient's initial sepsis screen is negative. Does the patient have a suspected source of infection? No. Patient's initial sepsis screen is negative. Risk Assessment: Do you want to hurt yourself or someone else? Patient reports no desire to harm self or others. Onset of symptoms was August 2019. 11:39 Method Of Arrival: Wheelchair sv 11:39 Acuity: MIKKI 2 sv Triage Assessment: 11:39 General: Appears in no apparent distress. uncomfortable, Behavior is calm, cooperative, sv appropriate for age. Neuro: Level of Consciousness is awake, alert, obeys commands, Gait is steady, Reports weakness. Respiratory: Airway is patent Respiratory effort is even, unlabored, Respiratory pattern is tachypnea. Historical: - Allergies: 11:42 No Known Allergies; sv - PMHx: 11:42 High Cholesterol; Hypertension; sv - Immunization history:: Adult Immunizations up to date, Flu vaccine is up to date. - Social history:: Patient/guardian denies using alcohol, street drugs, The patient lives with family, Smoking status: Patient denies any tobacco usage or history of. - Family history:: not pertinent. Screenin:41 Abuse screen: Denies threats or abuse. Nutritional screening: No deficits noted. Tuberculosis screening: No symptoms or risk factors identified. Fall Risk None identified. Assessment: 12:37 General: Appears in no apparent distress. Behavior is calm, cooperative, appropriate ah for age. Pain: Denies pain. Neuro: Level of Consciousness is awake, alert, obeys commands, Oriented to person, place, time, situation. Cardiovascular: Capillary refill < 3 seconds Patient's skin is warm and dry. Rhythm is sinus rhythm. Respiratory: Reports cough that is productive, Airway is patent Respiratory effort is even, unlabored. GI: Reports diarrhea, nausea. Derm: Skin is intact, is healthy with good turgor, Skin is dry. 13:15 Reassessment: Pt given discharge instructions. Advised pt to continue to quarantine ah allotted time. Pt voiced understanding. Vital Signs: 11:39 BP 158 / 68; Pulse 67; Resp 30; Pulse Ox 97% ; Weight 90.72 kg; Height 6 ft. 0 in. sv (182.88 cm); 12:00 BP 151 / 69; Pulse 84; Resp 21; Pulse Ox 97% ; ah 12:26 BP 151 / 69; Pulse 62; Resp 22; Temp 98.5; Pulse Ox 99% on R/A; dh4 13:00 BP 133 / 65; Pulse 52; Resp 22; Pulse Ox 97% ; ah 11:39 Body Mass Index 27.12 (90.72 kg, 182.88 cm) sv ED Course: 11:13 Patient arrived in ED. fj1 11:21 Kathie Armstrong MD is Attending Physician. ma2 11:41 Triage completed. sv 11:42 Arm band placed on. sv 11:42 Patient has correct armband on for positive identification. Placed in gown. Bed in low sv position. Call light in reach. Side rails up X2. pin machine operator on. Pulse ox on. NIBP on. 12:00 Initial lab(s) drawn, by me, sent to lab. First set of blood cultures drawn Second set ah of blood cultures drawn by me, Urine collected: clean catch specimen, clear, EKG done. Inserted saline lock: 20 gauge in right antecubital area, using aseptic technique. 12:30 Brandy Hameed, RN is Primary Nurse. 13:37 No provider procedures requiring assistance completed. ah 13:37 IV discontinued, intact, bleeding controlled, No redness/swelling at site. Pressure dressing applied. Administered Medications: 12:25 Drug: predniSONE 60 mg Route: PO; 13:01 Follow up: Response: No adverse reaction 12:25 Drug: NS 0.9% 500 ml Route: IV; Rate: 1 bolus; Site: right antecubital; Outcome: 12:55 Discharge ordered by MD. polk 13:25 Discharged to home via wheelchair. 13:25 Condition: stable 13:25 Discharge instructions given to patient, Instructed on discharge instructions, follow up and referral plans. Demonstrated understanding of instructions, follow-up care. 13:38 Patient left the ED. Signatures: Symone Beckman RN RN Kathie Armstrong MD MD az2 Joaquin Chow 1 Brandy Hameed RN RN Too Hardy 4 Corrections: (The following items were deleted from the chart) 11:42 11:39 Acuity: MIKKI 3 [facility]
--- NOTE | 2019-08-21 12:56 | EDPHYS ---
Physician Documentation [facility] Name: Jose A Mcgrath Age: 74 yrs Sex: Male : 1945 Arrival Date: 08/21/2019 Time: 11:13 Bed 19 Private MD: ED Physician Kathie Armstrong HPI: 08/20 12:51 This 74 yrs old Male presents to ER via Wheelchair with complaints of COVID ma2 19+ PATIENT WHOSE SYMPTOMS ARE BECOMING WORSE. 12:51 Onset: The symptoms/episode began/occurred gradually, 2 day(s) ago. Severity of ma2 symptoms: At their worst the symptoms were mild in the emergency department the symptoms have improved. The patient has not experienced similar symptoms in the past. covid +. Historical: - Allergies: 11:42 No Known Allergies; sv - PMHx: 11:42 High Cholesterol; Hypertension; sv - Immunization history:: Adult Immunizations up to date, Flu vaccine is up to date. - Social history:: Patient/guardian denies using alcohol, street drugs, The patient lives with family, Smoking status: Patient denies any tobacco usage or history of. - Family history:: not pertinent. ROS: 12:51 Constitutional: Negative for fever, chills, and weight loss. ma2 12:51 All other systems are negative. Exam: 12:51 Constitutional: This is a well developed, well nourished patient who is awake, alert, ma2 and in no acute distress. Head/Face: Normocephalic, atraumatic. Eyes: Pupils equal round and reactive to light, extra-ocular motions intact. Lids and lashes normal. Conjunctiva and sclera are non-icteric and not injected. Cornea within normal limits. Periorbital areas with no swelling, redness, or edema. ENT: Nares patent. No nasal discharge, no septal abnormalities noted. Tympanic membranes are normal and external auditory canals are clear. Oropharynx with no redness, swelling, or masses, exudates, or evidence of obstruction, uvula midline. Mucous membranes moist. Neck: Trachea midline, no thyromegaly or masses palpated, and no cervical lymphadenopathy. Supple, full range of motion without nuchal rigidity, or vertebral point tenderness. No Meningismus. Chest/axilla: Normal chest wall appearance and motion. Nontender with no deformity. No lesions are appreciated. Cardiovascular: Regular rate and rhythm with a normal S1 and S2. No gallops, murmurs, or rubs. Normal PMI, no JVD. No pulse deficits. Respiratory: Lungs have equal breath sounds bilaterally, clear to auscultation and percussion. No rales, rhonchi or wheezes noted. No increased work of breathing, no retractions or nasal flaring. Abdomen/GI: Soft, non-tender, with normal bowel sounds. No distension or tympany. No guarding or rebound. No evidence of tenderness throughout. Skin: Warm, dry with normal turgor. Normal color with no rashes, no lesions, and no evidence of cellulitis. MS/ Extremity: Pulses equal, no cyanosis. Neurovascular intact. Full, normal range of motion. Neuro: Awake and alert, GCS 15, oriented to person, place, time, and situation. Cranial nerves II-XII grossly intact. Motor strength 5/5 in all extremities. Sensory grossly intact. Cerebellar exam normal. Normal gait. Vital Signs: 11:39 BP 158 / 68; Pulse 67; Resp 30; Pulse Ox 97% ; Weight 90.72 kg; Height 6 ft. 0 in. sv (182.88 cm); 12:00 BP 151 / 69; Pulse 84; Resp 21; Pulse Ox 97% ; ah 12:26 BP 151 / 69; Pulse 62; Resp 22; Temp 98.5; Pulse Ox 99% on R/A; dh4 13:00 BP 133 / 65; Pulse 52; Resp 22; Pulse Ox 97% ; ah 11:39 Body Mass Index 27.12 (90.72 kg, 182.88 cm) sv MDM: 11:21 Patient medically screened. ma2 12:51 Differential Diagnosis covid, vs pneumonia vs acute bronchitis . Data reviewed: vital ma2 signs, nurses notes. Counseling: I had a detailed discussion with the patient and/or guardian regarding: the historical points, exam findings, and any diagnostic results supporting the discharge/admit diagnosis, the presence of at least one elevated blood pressure reading (>120/80) during this emergency department visit, the need for outpatient follow up. Response to treatment: the patient's symptoms have markedly improved after treatment. 08/20 11:24 Order name: Basic Metabolic Panel ma2 08/20 11:24 Order name: CBC with Diff ma2 08/20 11:24 Order name: Hepatic Function [facility] 08/20 11:24 Order name: Lipase [facility] 08/20 11:24 Order name: Blood Culture Adult (2) [facility] 08/20 11:24 Order name: C-Reactive Protein [facility] 08/20 11:24 Order name: Lactate; Complete Time: 12:51 [facility] 08/20 11:24 Order name: Procalcitonin [facility] 08/20 11:24 Order name: PT-INR; Complete Time: 12:51 [facility] 08/20 11:24 Order name: Ptt, Activated; Complete Time: 12:51 [facility] 08/20 11:24 Order name: Troponin (emerg Dept Use Only) [facility] 08/20 11:24 Order name: IV Saline Lock; Complete Time: 12:32 [facility] 08/20 11:24 Order name: Labs collected and sent; Complete Time: 12:32 [facility] 08/20 11:24 Order name: Urine Microscopic Only; Complete Time: 12:51 [facility] 08/20 11:24 Order name: EKG; Complete Time: 11:26 [facility] 08/20 11:24 Order name: Cardiac monitoring [facility] 08/20 11:25 Order name: Basic Metabolic Panel [facility] 08/20 11:25 Order name: CBC with Automated Diff [facility] 08/20 11:25 Order name: Liver (Hepatic) Function [facility] 08/20 11:25 Order name: Lipase [facility] 08/20 11:25 Order name: Blood Culture [facility] 08/20 11:25 Order name: C-Reactive Protein [facility] 08/20 12:10 Order name: Urine Dipstick--Ancillary (enter results) [facility] 08/20 13:32 Order name: Manual Differential [facility] 08/20 11:24 Order name: Droplet/Contact Precautions; Complete Time: 11:43 [facility] 08/20 11:24 Order name: EKG - Nurse/Tech; Complete Time: 12:31 [facility] 08/20 11:24 Order name: O2 Per Protocol; Complete Time: 12:31 [facility] 08/20 11:24 Order name: O2 Sat Monitoring; Complete Time: 12:31 [facility] 08/20 11:24 Order name: Urine Dipstick-Ancillary (obtain specimen); Complete Time: 12:31 ma2 Administered Medications: 12:25 Drug: predniSONE 60 mg Route: PO; 13:01 Follow up: Response: No adverse reaction 12:25 Drug: NS 0.9% 500 ml Route: IV; Rate: 1 bolus; Site: right antecubital; Disposition: 08/21/19 12:55 Discharged to Home. Impression: Coronavirus infection, unspecified. - Condition is Stable. - Discharge Instructions: COVID-19. - Medication Reconciliation Form, Thank You Letter, Antibiotic Education, Prescription Opioid Use form. - Follow up: Private Physician; When: Tomorrow; Reason: Continuance of care. Signatures: Dispatcher [employer] EDMS Symone Beckman, RN RN Kathie Armstrong MD MD me2 Brandy Hameed RN RN Corrections: (The following items were deleted from the chart) 11:38 11:26 CORONAVIRUS+MR.LAB.BRZ ordered. EDHI EDMS 11:38 11:26 Influenza Screen (A \T\ B)+BA.LAB.BRZ ordered. EDHI EDHI 11:38 11:26 Group A Streptococcus Rapid Sc+BA.LAB.BRZ ordered. ED[facility] EDMS 11:42 11:24 Notify Health Dept [phone]/ ordered. me2 11:43 11:24 Document PUI# ordered. me2 sv 12:00 11:26 Chest Single View+RAD.RAD.BRZ ordered. EDHI EDMS 13:38 12:55 08/21/2019 12:55 Discharged to Home. Impression: Coronavirus infection, ah unspecified. Condition is Stable. Forms are Medication Reconciliation Form, Thank You Letter, Antibiotic Education, Prescription Opioid Use. Follow up: Private Physician; When: Tomorrow; Reason: Continuance of care. ma2
[2019-08-21 13:18] LABS: Bilirubin Direct 0.2 mg/dL (0-0.2); Bilirubin Total 0.7 mg/dL (0.2-1.0); Potassium 3.7 mmol/L (3.5-5.1); Protein, Total 6.9 g/dL (6.4-8.2); Troponin (Emerg Dept Use Only) 0.03 ng/mL (0.0-0.045)
[2019-08-21 13:26] LABS: Urine Blood TRACE (NEG); Urine Glucose NEGATIVE (NEG); Urine Protein 2+ (NEG); Urine pH 6.5 (5.0-7.0)
[2019-08-21 13:32] LABS: Blood Morphology Comment NOT SEEN (NOT SEEN); Platelet Estimate ADEQ
[2019-08-21 13:47] VITALS: TEMP 98.5
[2019-08-21 13:48] VITALS: BP 133/65; O2SAT 97
== END 2019-08-21 13:38 | disposition home or self-care (01) ==
LOC: ER 11:06
DX: U07.1 COVID-19 (principal); I10 Essential (primary) hypertension
CPT/HCPCS: 87040 ×2; 85025; 80048; 36415; 85610; 80076; 83605; 85730; 84484; 83690; 84145; 86140; 99284; J7040; 81003; 81015; J7512